=== PATIENT | male | born 1995 | race Caucasian/White ===

== ENCOUNTER 2021-08-27 17:35 | Emergency (ER) | payer MEDICAID, SELFPAY ==
[2021-08-27 17:54] VITALS: BP 137/86; PULSE 89; RESP 16; TEMP 36.9; O2SAT 98; BMI 21.1
--- NOTE | 2021-08-27 18:08 | PC.NURSE ---
REQUESTED ROOM FROM MARLENE RODRÍGUEZ
--- NOTE | 2021-08-27 18:12 | CTR_ITS ---
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 Radiation optimization: All CT scans at this facility use at least one of these dose optimization techniques: automated exposure control; mA and/or kV adjustment per patient size (includes targeted exams where dose is matched to clinical indication); or iterative reconstruction. 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 The brain is otherwise unremarkable. Stable CSF fluid collection in the left frontal region, in the region of the previously resected brain, measuring 2.0 cm in thickness. Cerebral ventricles: Stable ex vacuo dilatation of the left frontal horn. No hydrocephalus. Paranasal sinuses: Visualized sinuses are unremarkable. No fluid levels. Mastoid air cells: Visualized mastoid air cells are well aerated. Bones/joints: Left frontal craniotomy defect with stable metal hardware. Soft tissues: Unremarkable. CT/CT head wo con* [id number] IMPRESSION: 1. No acute intracranial abnormality. 2. 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 3. 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 Radiation Dose CTDIVOL = (mGy): DLP = 897.05 (mGy-cm)
--- NOTE | 2021-08-27 18:12 | CTR_ITS ---
PROCEDURE INFORMATION: Exam: CT Angiography Head With Contrast, Arteriography Exam date and time: 08/27/2021 6:12 PM Age: 26 years old Clinical indication: Visual disturbance; Sudden visual loss; Prior surgery; Surgery type: Astrosarcoma; Additional info: Vision loss in center of his eye in right eye. PT reports complete of vision in left eye over 2 months ago TECHNIQUE: Imaging protocol: Computed tomography angiography of the head with contrast. Exam focused on the arteries. 3D rendering (Not supervised by radiologist): MIP and/or 3D reconstructed images were created by the technologist. Radiation optimization: All CT scans at this facility use at least one of these dose optimization techniques: automated exposure control; mA and/or kV adjustment per patient size (includes targeted exams where dose is matched to clinical indication); or iterative reconstruction. Contrast material: OMNI 300; Contrast volume: 75 ml; Contrast route: INTRAVENOUS (IV); COMPARISON: CT head wo con* [id number] 08/27/2021 6:37 PM RADIATION DOSE METRICS: Total DLP (mGy-cm): 1963.42 FINDINGS: ANTERIOR CIRCULATION: Right internal carotid artery: Unremarkable. Intracranial segment is patent with no significant stenosis. No aneurysm. Right middle cerebral artery: Unremarkable. No occlusion or significant stenosis. No aneurysm. Right anterior cerebral artery: Unremarkable. No occlusion or significant stenosis. No aneurysm. Left internal carotid artery: Unremarkable. Intracranial segment is patent with no significant stenosis. No aneurysm. Left middle cerebral artery: Unremarkable. No occlusion or significant stenosis. No aneurysm. Left anterior cerebral artery: Unremarkable. No occlusion or significant stenosis. No aneurysm. POSTERIOR CIRCULATION: Right vertebral artery: Unremarkable. No occlusion or significant stenosis. No aneurysm. Left vertebral artery: Unremarkable. No occlusion or significant stenosis. No aneurysm. Basilar artery: Unremarkable. No occlusion or significant stenosis. No aneurysm. Right posterior cerebral artery: Unremarkable. No occlusion or significant stenosis. No aneurysm. Left posterior cerebral artery: Unremarkable. No occlusion or significant stenosis. No aneurysm. Brain: Partial resection of the left frontal lobe with encephalomalacia. Cerebral ventricles: Ex vacuo dilatation of the left frontal horn. No hydrocephalus. Bones/joints: Left frontal craniotomy defect. No acute fracture. Soft tissues: Unremarkable. IMPRESSION: No large vessel stenosis or occlusion. PROCEDURE INFORMATION: Exam: CT Angiography Neck With Contrast Exam date and time: 08/27/2021 6:12 PM Age: 26 years old Clinical indication: Visual disturbance; Sudden visual loss; Prior surgery; Surgery type: Astrosarcoma; Additional info: Vision loss in center of his eye in right eye. PT reports complete of vision in left eye over 2 months ago TECHNIQUE: Imaging protocol: Computed tomography angiography of the neck with contrast. 3D rendering (Not supervised by radiologist): MIP and/or 3D reconstructed images were created by the technologist. Radiation optimization: All CT scans at this facility use at least one of these dose optimization techniques: automated exposure control; mA and/or kV adjustment per patient size (includes targeted exams where dose is matched to clinical indication); or iterative reconstruction. Contrast material: OMNI 300; Contrast volume: 75 ml; Contrast route: INTRAVENOUS (IV); COMPARISON: CT head wo con* [id number] 08/27/2021 6:37 PM RADIATION DOSE METRICS: Total DLP (mGy-cm): 1963.42 FINDINGS: Right common carotid artery: No stenosis. No dissection or occlusion. Right internal carotid artery: No stenosis of the extracranial segment. No dissection or occlusion. Right external carotid artery: No occlusion or stenosis of the origin. Left common carotid artery: No stenosis. No dissection or occlusion. Left internal carotid artery: No stenosis of the extracranial segment. No dissection or occlusion. Left external carotid artery: No occlusion or stenosis of the origin. Right vertebral artery: No stenosis. No dissection or occlusion. Left vertebral artery: No stenosis. No dissection or occlusion. Soft tissues: Normal. No significant soft tissue swelling. Bones/joints: No acute fracture. CT/CT angio headneck* [id number] IMPRESSION: No stenosis or occlusion. REFERENCES: NASCET CRITERIA. The degree of internal carotid artery stenosis is based on NASCET criteria. Normal is no stenosis. Mild is less than 50% stenosis. Moderate is 50-69% stenosis. Severe is 70% to 99% stenosis. Total occlusion is no detectable patent lumen. Radiation Dose CTDIVOL = (mGy): DLP = 1963.42~1963.42 (mGy-cm)
--- NOTE | 2021-08-27 18:30 | ECG_ITS ---
[facility] Test Date: 2021-08-27 Pat Name: Cayetano Dill Department: Room: Gender: Male Director Of Social Work: : 1995 Requested By: Isamar Simmons Order Number: [id number] Richar MD: Ana Paula Diaz M.D. Measurements Intervals [place] Rate: 84 P: 65 MT: 156 QRS: 73 QRSD: 86 T: 25 QT: 351 QTc: 415 Interpretive Statements SINUS RHYTHM NONSPECIFIC T-WAVE ABNORMALITY No previous ECG available for comparison Electronically Signed On 08-28-2021 17:58:03 LINE MAINTAINER SECTION by Ana Paula Diaz M.D. [id number]
--- NOTE | 2021-08-27 18:33 | ED_ITS ---
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 He states he woke up this morning with central loss of vision in his right eye states he only has peripheral vision denies headache denies any other symptoms denies any other focal deficits denies any worst improving factors. Associated symptoms: Denies fever(s), headache(s), nausea, neck pain or vomiting Review of Systems Const: Denies: fever(s), chills, body aches or change in appetite Eyes: Reports: blind spots ENMT: Denies: throat pain or dental pain Card: Denies: chest pain Resp: Denies: dyspnea GI: Denies: abdominal pain, nausea, vomiting or diarrhea : Denies: dysuria Musc: Denies: neck pain or back pain Skin/Breast: Denies: rash Neuro: Denies: headache(s) Psych: Denies: depression Meño/Lymph: Denies: easy bruising All/Imm: Denies: urticaria Physical Exam Const: COMMON NORMALS: no acute distress, patient oriented x3 and healthy appearing HENMT: COMMON NORMALS: normocephalic and atraumatic HEAD & SCALP: normocephalic and atraumatic Eye: COMMON NORMALS: Equal, round and reactive pupils present and EOMs intact bilaterally PUPIL: Yes Equal, round and reactive pupils present OTHER: Complete vision loss to the left eye central vision loss to right eye Neck/C-Spine: COMMON NORMALS: full ROM and supple Chest: COMMONS NORMALS: normal inspection of the chest and normal palpation of entire chest wall Resp: COMMON NORMALS: normal respiratory effort, No retractions, No use of accessory muscles and clear to auscultation bilaterally AUSCULTATION: clear to auscultation bilaterally Cardio: COMMON NORMALS: regular rate, regular rhythm and No murmurs present (Cardio) RATE: regular rate RHYTHM: regular rhythm GI: COMMON NORMALS: Normal to inspection, nondistended, normoactive bowel sounds present, Soft to palpation, non-tender and no masses PALPATION: Yes Soft to palpation Extremity: COMMON NORMALS: normal to inspection and full ROM Neuro: COMMON NORMALS: patient oriented x3, moves all extremities and no focal motor deficits Psych: COMMON NORMALS: mental status grossly normal, Normal thought process pr esent and cooperative THOUGHT PROCESS: Normal thought process present Skin: COMMON NORMALS: no rashes or lesions noted and no wounds GENERAL SKIN EXAM: no rashes or lesions noted Course Vital Signs: Vital signs: Vital Signs Temperature 98.5 F 08/27/21 17:54 Pulse Rate 79 08/27/21 19:33 Respiratory Rate 18 08/27/21 18:48 Blood Pressure 157/97 08/27/21 19:33 Pulse Oximetry 99 08/27/21 19:33 MDM - Eye Problem MDM Narrative: Medical decision making narrative: Patient presents here with loss of central vision in his right eye and loss of vision in his left eye 2 months ago. Patient's blood work and CT are all normal. I strongly recommended admission for MRI still I am still concerned of a possible lesion or stroke he states he believes denies issues he does have retinopathy from his diabetes. He refused to stay. Patient understands the risks has decision-making capacity is going to sign out AGAINST MEDICAL ADVICE we will get him set up with Dr. Cooney and he is to follow-up with his neurologist I informed if he changes mind he is return for admission he understands agrees. Lab Data: Labs: Lab Results 08/27/21 08/27/21 08/27/21 18:40 18:40 18:40 WBC 2.7 10^3/uL L 10^ 3/uL (4.0-10.0) RBC 3.31 10^6/uL L 10 ^6/uL (4.1-5.3) Hgb 10.5 g/dL L g/dL (11.7-16.6) Hct 31.1 % L % (42.0-52.0) MCV 94.0 fl fl (80-94) MCH 31.7 pg pg (28.0-34.0) MCHC 33.8 g/dL g/dL (30.0-36.0) RDW 11.9 % L % (12.1-15.1) Plt Count 114 10^3/cmm L 10 ^3/cmm (130-400) MPV 10.0 fL fL (7.4-10.4) Neut % (Auto) 60.3 % % Lymph % (Auto) 27.9 % % [place] % (Auto) 10.2 % % Eos % (Auto) 0.8 % % Baso % (Auto) 0.4 % % Neut # (Auto) 1.60 10^3/uL L 10 ^3/uL (1.8-7.7) Lymph # (Auto) 0.7 10^3/uL L 10^ 3/uL (0.8-4.8) [place] # (Auto) 0.3 10^3/uL 10^3/ uL (0.2-0.9) Eos # (Auto) 0.0 10^3/uL 10^3/ uL (0.0-0.8) Baso # (Auto) 0.0 10^3/uL 10^3/ uL (0.0-0.1) Nucleated RBC % (a uto) 0 % % Nucleated RBCs # 0.0 /100WBC /100W BC PT 12.90 SECONDS SEC ONDS (12.1-14.9) INR 0.94 (0.8-1.2) Sodium 139 mmol/L mmol/L (136-145) Potassium 4.3 mmol/L mmol/L (3.5-5.1) Chloride 102 mmol/L mmol/L (98-107) Carbon Dioxide 29 mmol/L mmol/L (22-29) Anion Gap 12.3 (5-19) BUN 23 mg/dL H mg/dL (6-20) Creatinine 1.8 mg/dL H mg/dL (0.7-1.2) GFR Calculation 45.5 mL/min L mL/ min (90-130) Glucose 187 mg/dL H mg/dL (65-115) Calculated Osmolal ity 297 mOsm/kg H mOs m/kg (285-295) Calcium 8.8 mg/dL mg/dL (8.5-10.5) Total Bilirubin 0.2 mg/dL mg/dL (0.15-1.2) AST 16 U/L U/L (0-40) ALT 13 U/L U/L (0-41) Alkaline Phosphata se 82 IU/L IU/L (40-130) Total Protein 6.5 g/dL L g/dL (6.6-8.7) Albumin 3.9 g/dL g/dL (3.5-5.2) Globulin 2.6 g/dL g/dL (1.3-4.6) Imaging Data^: CT Head: Attestation: I personally reviewed and interpreted this imaging study as follows: Radiologist's impression: [address] 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 Radiation optimization: All CT scans at this facility use at least one of these dose optimization techniques: automated exposure control; mA and/or kV adjustment per patient size (includes targeted exams where dose is matched to clinical indication); or iterative reconstruction. COMPARISON: CT head wo con* [id number] 05/03/2019 5:09 PM RADIATION DOSE METRICS: Total DLP (mGy-cm): 897.05 FINDINGS: Brain: Stable partial resection of the left frontal lobe with encephalomalacia. The brain is otherwise unremarkable. Stable CSF fluid collection in the left frontal region, in the region of the previously resected brain, measuring 2.0 cm in thickness. Cerebral ventricles: Stable ex vacuo dilatation of the left frontal horn. No hydrocephalus. Paranasal sinuses: Visualized sinuses are unremarkable. No fluid levels. Mastoid air cells: Visualized mastoid air cells are well aerated. Bones/joints: Left frontal craniotomy defect with stable metal hardware. Soft tissues: Unremarkable. CT/CT head wo con* [id number] IMPRESSION: 1. No acute intracranial abnormality. 2. 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 3. 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 Radiation Dose CTDIVOL = (mGy): DLP = 897.05 (mGy-cm) Dictated By: James Yepez Signed By: James Yepez Signed Date/Time: 08/27/211914 DD/ [address]: Radiologist's impression: [address] [address] [address] Scan Report Signed Patient: Cayetano Dill Unit #: [id number] : 1995 Age/Sex: 26 / M ADM Date: 08/27/21 Loc: ER Room/Bed: Attending Dr: Ordering Provider/Ordering MD: Isamar Simmons MD Date of Service: 08/27/21 Procedure(s): CT angio headneck* [id number] Accession Number(s): [id number] Report Number: [id number] PROCEDURE INFORMATION: Exam: CT Angiography Head With Contrast, Arteriography Exam date and time: 08/27/2021 6:12 PM Age: 26 years old Clinical indication: Visual disturbance; Sudden visual loss; Prior surgery; Surgery type: Astrosarcoma; Additional info: Vision loss in center of his eye in right eye. PT reports complete of vision in left eye over 2 months ago TECHNIQUE: Imaging protocol: Computed tomography angiography of the head with contrast. Exam focused on the arteries. 3D rendering (Not supervised by radiologist): MIP and/or 3D reconstructed images were created by the technologist. Radiation optimization: All CT scans at this facility use at least one of these dose optimization techniques: automated exposure control; mA and/or kV adjustment per patient size (includes targeted exams where dose is matched to clinical indication); or iterative reconstruction. Contrast material: OMNI 300; Contrast volume: 75 ml; Contrast route: INTRAVENOUS (IV); COMPARISON: CT head wo con* [id number] 08/27/2021 6:37 PM RADIATION DOSE METRICS: Total DLP (mGy-cm): 1963.42 FINDINGS: ANTERIOR CIRCULATION: Right internal carotid artery: Unremarkable. Intracranial segment is patent with no significant stenosis. No aneurysm. Right middle cerebral artery: Unremarkable. No occlusion or significant stenosis. No aneurysm. Right anterior cerebral artery: Unremarkable. No occlusion or significant stenosis. No aneurysm. Left internal carotid artery: Unremarkable. Intracranial segment is patent with no significant stenosis. No aneurysm. Left middle cerebral artery: Unremarkable. No occlusion or significant stenosis. No aneurysm. Left anterior cerebral artery: Unremarkable. No occlusion or significant stenosis. No aneurysm. POSTERIOR CIRCULATION: Right vertebral artery: Unremarkable. No occlusion or significant stenosis. No aneurysm. Left vertebral artery: Unremarkable. No occlusion or significant stenosis. No aneurysm. Basilar artery: Unremarkable. No occlusion or significant stenosis. No aneurysm. Right posterior cerebral artery: Unremarkable. No occlusion or significant stenosis. No aneurysm. Left posterior cerebral artery: Unremarkable. No occlusion or significant stenosis. No aneurysm. Brain: Partial resection of the left frontal lobe with encephalomalacia. Cerebral ventricles: Ex vacuo dilatation of the left frontal horn. No hydrocephalus. Bones/joints: Left frontal craniotomy defect. No acute fracture. Soft tissues: Unremarkable. IMPRESSION: No large vessel stenosis or occlusion. PROCEDURE INFORMATION: Exam: CT Angiography Neck With Contrast Exam date and time: 08/27/2021 6:12 PM Age: 26 years old Clinical indication: Visual disturbance; Sudden visual loss; Prior surgery; Surgery type: Astrosarcoma; Additional info: Vision loss in center of his eye in right eye. PT reports complete of vision in left eye over 2 months ago TECHNIQUE: Imaging protocol: Computed tomography angiography of the neck with contrast. 3D rendering (Not supervised by radiologist): MIP and/or 3D reconstructed images were created by the technologist. Radiation optimization: All CT scans at this facility use at least one of these dose optimization techniques: automated exposure control; mA and/or kV adjustment per patient size (includes targeted exams where dose is matched to clinical indication); or iterative reconstruction. Contrast material: OMNI 300; Contrast volume: 75 ml; Contrast route: INTRAVENOUS (IV); COMPARISON: CT head wo con* [id number] 08/27/2021 6:37 PM RADIATION DOSE METRICS: Total DLP (mGy-cm): 1963.42 FINDINGS: Right common carotid artery: No stenosis. No dissection or occlusion. Right internal carotid artery: No stenosis of the extracranial segment. No dissection or occlusion. Right external carotid artery: No occlusion or stenosis of the origin. Left common carotid artery: No stenosis. No dissection or occlusion. Left internal carotid artery: No stenosis of the extracranial segment. No dissection or occlusion. Left external carotid artery: No occlusion or stenosis of the origin. Right vertebral artery: No stenosis. No dissection or occlusion. Left vertebral artery: No stenosis. No dissection or occlusion. Soft tissues: Normal. No significant soft tissue swelling. Bones/joints: No acute fracture. CT/CT angio headneck* [id number] IMPRESSION: No stenosis or occlusion. REFERENCES: NASCET CRITERIA. The degree of internal carotid artery stenosis is based on NASCET criteria. Normal is no stenosis. Mild is less than 50% stenosis. Moderate is 50-69% stenosis. Severe is 70% to 99% stenosis. Total occlusion is no detectable patent lumen. Radiation Dose CTDIVOL = (mGy): DLP = 1963.42 1963.42 (mGy-cm) Dictated By: James Yepez Signed By: James Yepez Signed Date/Time: 08/27/211930 DD/ 11 EKG Data^: EKG 1: Attestation: I personally reviewed and interpreted this EKG as follows: EKG interpretation date: 08/27/21 EKG interpretation time: 19:01 Interpretation: nsr hr [address] or t wave abnormalities qrs 86 qtc 391 Discharge Plan Discharge Patient Disposition: Left Against Medical Advice Clinical Impression: Loss of vision Condition: Stable Discharge Orders: Discharge ED (Routine); Ordered 08/27/21 Ordered By: Isamar Simmons Referrals: Peña Cooney MD [Physician] - 1-3 days Discharge Diet: Advance as tolerated Discharge Activity: Resume usual activity Patient Instructions: Vision Problems Coding Level of Care Code ED Driller And Broacher for Chg Fwd Exam Comprehensive
[2021-08-27] MEDS: iohexol 350 mg/mL 100 mL Btl IV (18:43)
[2021-08-27 18:48] VITALS: BP 167/101; PULSE 88; RESP 18; O2SAT 99
[2021-08-27 18:57] LABS: Basophils % 0.4 %; Eosinophils % 0.8 %; Hematocrit 31.1 % (42.0-52.0); Hemoglobin 10.5 g/dL (11.7-16.6); Lymphocytes # 0.7 10^3/uL (0.8-4.8); Lymphocytes % 27.9 %; Mean Corpuscular HGB Conc 33.8 g/dL (30.0-36.0); Mean Corpuscular Hemoglobin 31.7 pg (28.0-34.0); Monocytes # 0.3 10^3/uL (0.2-0.9); Monocytes % 10.2 %; Neutrophils % 60.3 %; Nucleated Red Blood Cells % 0 %; Platelet Count 114 10^3/cmm (130-400); Red Blood Count 3.31 10^6/uL (4.1-5.3); Red Cell Distribution Width 11.9 % (12.1-15.1); White Blood Count 2.7 10^3/uL (4.0-10.0)
[2021-08-27 19:10] LABS: INR 0.94 (0.8-1.2)
[2021-08-27 19:13] LABS: Alanine Aminotransferase 13 U/L (0-41); Albumin Level 3.9 g/dL (3.5-5.2); Alkaline Phosphatase 82 IU/L (40-130); Anion Gap 12.3 (5-19); Aspartate Amino Transferase 16 U/L (0-40); Blood Urea Nitrogen 23 mg/dL (6-20); Calcium 8.8 mg/dL (8.5-10.5); Carbon Dioxide 29 mmol/L (22-29); Chloride 102 mmol/L (98-107); Globulin 2.6 g/dL (1.3-4.6); Glomerular Filtration Rate 45.5 mL/min (90-130); Glucose 187 mg/dL (65-115); Osmolality Calculated 297 mOsm/kg (285-295); Potassium 4.3 mmol/L (3.5-5.1); Sodium 139 mmol/L (136-145); Total Bilirubin 0.2 mg/dL (0.15-1.2); Total Protein 6.5 g/dL (6.6-8.7)
[2021-08-27 19:33] VITALS: BP 157/97; PULSE 79; O2SAT 99
[2021-08-27] MEDS: sodium chloride 0.9% 1,000 ML 999 ML IV (19:40)
[2021-08-27 19:55] VITALS: BP 134/81; RESP 18; O2SAT 99
--- NOTE | 2021-08-29 05:53 | DCPLANNER ---
Addendum entered by Kaylah Brooks 09/14/21 07:41: Patient was seen on 08.31.21 Original Note: certified orthotist practice manager had message to schedule a follow up appointment for patient with Dr. Cooney, for vision loss. certified orthotist practice manager faxed patients information to the office of Dr. Cooney, who will call patient with appointment information.
== END 2021-08-27 19:58 | disposition left against medical advice (07) ==
PROVIDERS: Emergency Provider Emergency Medicine
DX: H54.3 Unqualified visual loss, both eyes (principal); E10.9 Type 1 diabetes mellitus without complications; Z53.29 Procedure and treatment not carried out because of patient's decision for other reasons
CPT/HCPCS: 70450; 70496; 70498; 80053; 85025; 85610; 93005; 96360; 99284; J7030; Q9967

== ENCOUNTER → 2022-02-26 07:53 | Outpatient (BNVA) | payer MEDICAID, SELFPAY | PROVIDERS: PCP Family Medicine; Visit Provider Internal Medicine | DX: E10.319 Type 1 diabetes mellitus with unspecified diabetic retinopathy without macular edema (principal); E10.42 Type 1 diabetes mellitus with diabetic polyneuropathy; E78.2 Mixed hyperlipidemia; H35.00 Unspecified background retinopathy; Z79.4 Long term (current) use of insulin | CPT/HCPCS: 99204 ==

== ENCOUNTER → 2022-05-14 12:30 | Outpatient (BNVA) | payer MEDICAID, SELFPAY | PROVIDERS: PCP Family Medicine; Visit Provider Internal Medicine | DX: E10.319 Type 1 diabetes mellitus with unspecified diabetic retinopathy without macular edema (principal); H54.3 Unqualified visual loss, both eyes; Z85.841 Personal history of malignant neoplasm of brain; Z79.4 Long term (current) use of insulin; E78.2 Mixed hyperlipidemia; G62.9 Polyneuropathy, unspecified | CPT/HCPCS: 99214 ==

== ENCOUNTER → 2022-05-21 10:36 | Outpatient (BNVA) | payer MEDICAID, SELFPAY | PROVIDERS: PCP Family Medicine; Visit Provider Family Medicine | DX: N18.32 Chronic kidney disease, stage 3b (principal) | CPT/HCPCS: 80069; 82043; 85025 ==

== ENCOUNTER 2022-05-22 18:27 | Emergency (ER) | payer MEDICAID, SELFPAY ==
[2022-05-22 18:45] VITALS: BP 138/89; PULSE 111; RESP 20; TEMP 36.2; O2SAT 100
[2022-05-22 19:34] LABS: Basophils % 0.4 %; Eosinophils % 0.4 %; Hematocrit 33.3 % (42.0-52.0); Hemoglobin 11.1 g/dL (11.7-16.6); Lymphocytes # 0.9 10^3/uL (0.8-4.8); Lymphocytes % 9.1 %; Mean Corpuscular HGB Conc 33.3 g/dL (30.0-36.0); Mean Corpuscular Hemoglobin 29.9 pg (28.0-34.0); Mean Corpuscular Volume 89.8 fl (80-94); Monocytes # 0.6 10^3/uL (0.2-0.9); Monocytes % 5.3 %; Neutrophils # 8.76 10^3/uL (1.8-7.7); Neutrophils % 84.6 %; Nucleated Red Blood Cells % 0 %; Platelet Count 219 10^3/cmm (130-400); Red Blood Count 3.71 10^6/uL (4.1-5.3); Red Cell Distribution Width 12.4 % (12.1-15.1); White Blood Count 10.4 10^3/uL (4.0-10.0)
[2022-05-22] MEDS: sodium chloride 0.9% 1,000 ML 999 ML IV (19:37)
[2022-05-22] MEDS: ondansetron 2 mg/ML SDV 2 mL 8 MG IVP (19:37)
[2022-05-22 19:39] LABS: Glucose Point of Care 247 mg/dL (70-110)
--- NOTE | 2022-05-22 19:43 | W.ED.GENADLT ---
HPI - General Adult General: Chief complaint: General Medical Stated complaint: High Sugar, N/V Time Seen by Provider: 05/22/22 18:49 History of Present Illness: 26-year-old male presenting today with high blood glucose. Patient notes that he is a type I diabetic with an insulin pump. However insulin has been as high as 500 today. No changes to medications. Was feeling normally before this happened. Is tried multiple boluses of insulin without improvement. Patient thinks his insulin is working fine. He notes nausea vomiting, diffuse abdominal pain with this. The symptoms did not begin until after elevation in glucose. Review of Systems General: Reports: 10 or more systems reviewed and unremarkable except in HPI and below PFSH ED PFSH: Medical History Diabetes type 1, uncontrolled Hernia Seizures Surgical History H/O brain surgery H/O eye surgery Family History Father No problems noted. Mother COPD (chronic obstructive pulmonary disease) Social History Smoking and tobacco status: never smoked Second hand smoke exposure: No Smoking risk assessment/counseling performed?: Yes Alcohol intake: never Desire information about alcohol rehabilitation?: No Counseling given: No Desire information about substance/drug rehabilitation?: No Counseling given: No Adopted: No Caregiver/support person: No Lives independently: Yes Household members: significant other and other Housing: Manufactured/Mobile home Marital status: Single Number of children: 0 Highest education level completed: GED or Equivalent service: No Current occupational status: disabled History of recent travel: No Physical Exam Const: COMMON NORMALS: no acute distress, patient oriented x3 and alert GENERAL APPEARANCE: cooperative ORIENTATION/CONSCIOUSNESS: Yes awake, Yes oriented to person, Yes oriented to place and Yes oriented to time HENMT: COMMON NORMALS: normocephalic, atraumatic, external ears normal, Normal external nose present and moist oral mucous membranes HEAD & SCALP: normal to inspection, normocephalic and atraumatic NOSE: Normal external nose present GENERAL EAR: hearing grossly impaired EXTERNAL EAR: Yes external ears normal Eye: COMMON NORMALS: Equal, round and reactive pupils present, EOMs intact bilaterally, conjunctivae normal and no scleral icterus GENERAL EYE: appearance normal, both eyes and all related structures EYELID: eyelids normal CONJUNCTIVA: Yes conjunctivae normal SCLERA: sclerae normal PUPIL: Yes Equal, round and reactive pupils present Neck/C-Spine: COMMON NORMALS: full ROM, supple and no JVD GENERAL: Yes normal visual inspection Lymph: LYMPHATIC: no lymphadenopathy noted and no lymphedema noted Chest: COMMONS NORMALS: normal inspection of the chest Resp: COMMON NORMALS: normal respiratory effort, No retractions and No use of accessory muscles Cardio: COMMON NORMALS: no JVD, regular rate and regular rhythm RATE: regular rate RHYTHM: regular rhythm GI: COMMON NORMALS: Normal to inspection, nondistended, normoactive bowel sounds present : COMMON NORMALS: Yes no CVA tenderness BLADDER/KIDNEY EXAM: Yes no CVA tenderness Back/Pelvis: COMMON NORMALS: no CVA tenderness and thoracic and lumbar spine normal to inspection Extremity: COMMON NORMALS: normal to inspection, full ROM and capillary refill normal GENERAL: Yes normal exam except as noted Neuro: COMMON NORMALS: patient oriented x3, CN's II-XII intact bilaterally, moves all extremities, no focal motor deficits, no sensory deficits noted and gait normal SENSORIUM/ORIENTATION: Yes alert, Yes oriented to person, Yes oriented to place and Yes oriented to time Psych: COMMON NORMALS: mental status grossly normal, Normal thought process present, cooperative and normal affect THOUGHT PROCESS: Normal thought process present Skin: COMMON NORMALS: no rashes or lesions noted and no wounds GENERAL SKIN EXAM: no rashes or lesions noted Course Vital Signs: Vital signs: Vital Signs Temperature 97.1 F L 05/22/22 18:45 Pulse Rate 79 05/22/22 19:51 Respiratory Rate 16 05/22/22 19:51 Blood Pressure 139/90 05/22/22 19:51 Pulse Oximetry 100 05/22/22 19:51 Oxygen Delivery Me thod 05/22/22 19:51 [facility] - General Adult Medical Decision Making Patient is a 26-year-old male presenting today with elevated glucose and type 1 diabetes. Patient does note significant heat exhaustion today. ABG within normal limits. No evidence of ketones. Glucose continues to downtrend down. Patient was given a bolus of normal saline. Medicine for nausea. Vast improvement overall symptoms. Will discharge to home with strict return precautions. Patient agreement with plan. Lab Data : 05/22/22 19:22 05/22/22 19: Laboratory Results WBC 10.4 10^3/uL (4.0-10.0) H 05/22/22 19: RBC 3.71 10^6/uL (4.1-5.3) L 05/22/22 19:22 Hgb 11.1 g/dL (11.7-16.6) L 05/22/22 19: Hct 33.3 % (42.0-52.0) L 05/22/22 19: MCV 89.8 fl (80-94) 05/22/22 19: MCH 29.9 pg (28.0-34.0) 05/22/22 19: MCHC 33.3 g/dL (30.0-36.0) 05/22/22 19: RDW 12.4 % (12.1-15.1) 05/22/22 19: Plt Count 219 10^3/cmm (130-400) 05/22/22 19: MPV 10.0 fL (7.4-10.4) 05/22/22 19: Neut % (Auto) 84.6 % 05/22/22 19: Lymph % (Auto) 9.1 % 05/22/22 19: Overton % (Auto) 5.3 % 05/22/22 19: Eos % (Auto) 0.4 % 05/22/22 19: Baso % (Auto) 0.4 % 05/22/22 19: Neut # (Auto) 8.76 10^3/uL (1.8-7.7) H 05/22/22 19: Lymph # (Auto) 0.9 10^3/uL (0.8-4.8) 05/22/22 19: Overton # (Auto) 0.6 10^3/uL (0.2-0.9) 05/22/22 19: Eos # (Auto) 0.0 10^3/uL (0.0-0.8) 05/22/22 19:22 Baso # (Auto) 0.0 10^3/uL (0.0-0.1) 05/22/22 19:22 Nucleated RBC % (auto) 0 % 05/22/22 19:22 Nucleated RBCs # 0.0 /100WBC 05/22/22 19:22 Specimen Type Arterial 05/22/22 17:32 Sample Site Radial, right 05/22/22 17:32 ABG pH 7.41 (7.35-7.45) 05/22/22 17:32 ABG pCO2 40.8 mmHg (35-45) 05/22/22 17:32 ABG pO2 81.7 mmHg (80.0-100.0) 05/22/22 17:32 ABG HCO3 25.6 mmol/L (22-26) 05/22/22 17:32 ABG Base Excess 0.8 mmol/L (-2.0-2.0) 05/22/22 17:32 John Test Pos 05/22/22 17:32 Hematocrit 34.3 % (42-52) L 05/22/22 17:32 O2 Delivery Device Room air 05/22/22 17:32 FiO2 21.0 % 05/22/22 17:32 Boiler Tenders Supervisor ID Monro 05/22/22 17:32 Sodium 138 mmol/L (136-145) 05/22/22 19:22 Potassium 4.6 mmol/L (3.5-5.1) 05/22/22 19:22 Chloride 101 mmol/L (98-107) 05/22/22 19:22 Carbon Dioxide 26 mmol/L (22-29) 05/22/22 19:22 Anion Gap 15.6 (5-19) 05/22/22 19:22 BUN 24 mg/dL (6-20) H 05/22/22 19:22 Creatinine 1.8 mg/dL (0.7-1.2) H 05/22/22 19:22 GFR Calculation 45.5 mL/min (90-130) L 05/22/22 19:22 Glucose 264 mg/dL (65-115) H 05/22/22 19:22 POC Glucose 247 mg/dL (70-110) H 05/22/22 19:34 Calculated Osmolality 299 mOsm/kg (285-295) H 05/22/22 19:22 Calcium 9.6 mg/dL (8.5-10.5) 05/22/22 19:22 Magnesium 2.0 mg/dL (1.7-2.3) 05/22/22 19:22 Total Bilirubin 0.4 mg/dL (0.15-1.2) 05/22/22 19:22 AST 20 U/L (0-40) 05/22/22 19:22 ALT 9 U/L (0-41) 05/22/22 19:22 Alkaline Phosphatase 96 U/L (40-130) 05/22/22 19:22 Total Protein 6.8 g/dL (6.6-8.7) 05/22/22 19:22 Albumin 4.4 g/dL (3.5-5.2) 05/22/22 19:22 Globulin 2.4 g/dL (1.3-4.6) 05/22/22 19:22 Serum Ketones Negative (Negative) 05/22/22 19:22 Discharge Plan Discharge Patient Disposition: Home Clinical Impression: Acute hyperglycemia, Heat exhaustion Condition: Stable Prescriptions: No Action oxcarbazepine 600 mg tablet 600 mg PO BID Lantus Solostar U-100 Insulin 100 unit/mL (3 mL) insulin pen 14 unit SUBCUT QAM Rx Instructions: 13-14 units at night insulin aspart U-100 [Novolog U-100 Insulin aspart] 100 unit/mL solution 30 unit SUBCUT DAILY 90 Days Qty: 40 3RF (DME) Dexcom G6 Computer Technology Teacher Misc See Rx Instructions .Route Qty: 1 0RF Rx Instructions: Check BS 4-6 times a day. (DME) Dexcom G6 Sensor Device See Rx Instructions .Route Qty: 3 3RF Rx Instructions: Change every 10 days. (DME) Dexcom G6 Transmitter Device See Rx Instructions .Route Qty: 1 3RF Rx Instructions: Change every 90 days. insulin aspart U-100 [Novolog Flexpen U-100 Insulin] 100 unit/mL (3 mL) insulin pen See Rx Instructions SUBCUT TID Qty: 15 3RF Rx Instructions: Uses for SS SUBCUT three times daily; Max dose 80 units. Discharge Orders: Discharge ED (Routine); Ordered 05/22/22 Ordered By: Wesley Bowden Referrals: Andrzej Todd DO [Primary Care Provider] - Patient Instructions: Hyperglycemia Coding Level of Care Code ED Licensed Appraiser for Chg Fwd Exam Comprehensive
[2022-05-22 19:44] LABS: ABG PCO2 40.8 mmHg (35-45); ABG PH Result 7.41 (7.35-7.45); Arterial Blood Gas Hematocrit 34.3 % (42-52); Base Excess ABG 0.8 mmol/L (-2.0-2.0); Blood Gas Allen Test Pos; Blood Gas Sample Type Arterial; HCO3 ABG 25.6 mmol/L (22-26); PO2 ABG 81.7 mmHg (80.0-100.0)
[2022-05-22 19:45] LABS: Blood Gas Operator Identificat MONRO; Blood Gas Sample Site Radial, right; Oxygen Device ROOM AIR
[2022-05-22 19:45] LABS: Ketone (Acetest) Serum Negative (Negative)
[2022-05-22 19:51] VITALS: BP 139/90; PULSE 79; RESP 16; O2SAT 100
[2022-05-22 19:53] LABS: Alanine Aminotransferase 9 U/L (0-41); Albumin Level 4.4 g/dL (3.5-5.2); Alkaline Phosphatase 96 U/L (40-130); Anion Gap 15.6 (5-19); Aspartate Amino Transferase 20 U/L (0-40); Blood Urea Nitrogen 24 mg/dL (6-20); Calcium 9.6 mg/dL (8.5-10.5); Carbon Dioxide 26 mmol/L (22-29); Chloride 101 mmol/L (98-107); Globulin 2.4 g/dL (1.3-4.6); Glomerular Filtration Rate 45.5 mL/min (90-130); Glucose 264 mg/dL (65-115); Osmolality Calculated 299 mOsm/kg (285-295); Potassium 4.6 mmol/L (3.5-5.1); Sodium 138 mmol/L (136-145); Total Bilirubin 0.4 mg/dL (0.15-1.2); Total Protein 6.8 g/dL (6.6-8.7)
== END 2022-05-22 20:45 | disposition home or self-care (01) ==
PROVIDERS: Emergency Medicine; Emergency Provider Emergency Medicine; PCP Family Medicine
DX: E10.65 Type 1 diabetes mellitus with hyperglycemia (principal); T67.5XXA Heat exhaustion, unspecified, initial encounter; X30.XXXA Exposure to excessive natural heat, initial encounter; Z96.41 Presence of insulin pump (external) (internal)
CPT/HCPCS: 36416; 36600; 80053; 82009; 82803; 82962; 83735; 85025; 96361; 96374; 99284; J2405; J7030

== ENCOUNTER 2022-07-19 06:06 | Outpatient (CLI) | payer MEDICAID, SELFPAY ==
--- NOTE | 2022-07-19 | US_ITS ---
WS: [id number] TESTICULAR ULTRASOUND HISTORY: Epididymal cyst COMPARISON: 06/22/2019 TECHNIQUE: Real-time and color Doppler imaging or utilized to perform a testicular ultrasound. Right testicle: 4.7 cm x 3.1 cm x 2.4 cm. Normal size and echogenicity. No mass or torsion. Normal color Doppler is present throughout. Systolic and diastolic velocities are both present. No significant hydrocele. Right epididymis: Normal epididymis with no increased vascularity. Left testicle: 4.5 cm x 2.9 cm x 2.4 cm. Normal size and echogenicity. No mass or torsion. Normal color Doppler is present throughout. Systolic and diastolic velocities are both present. Small LEFT hydrocele. Small LEFT varicocele. Left epididymis: Normal size LEFT epididymal head. Along the body of the epididymis is a small cyst w ith septation measuring 8 x 7 x 6 mm. This was previously described. US/US scrotum [id number] IMPRESSION: 1. Small stable complex cyst LEFT epididymis. 2. Small LEFT hydrocele. 3. No testicular mass or torsion.
== END 2022-07-19 06:07 | disposition home or self-care (01) ==
LOC: RAD 06:06
PROVIDERS: PCP Family Medicine; Visit Provider Urology
DX: N50.3 Cyst of epididymis (principal); N43.3 Hydrocele, unspecified
CPT/HCPCS: 76870

== ENCOUNTER → 2022-07-24 12:04 | Outpatient (BNVA) | payer MEDICAID, SELFPAY | PROVIDERS: PCP Family Medicine; Visit Provider Family Medicine | DX: N18.32 Chronic kidney disease, stage 3b (principal); D63.1 Anemia in chronic kidney disease; I10 Essential (primary) hypertension; E78.2 Mixed hyperlipidemia | CPT/HCPCS: 80061; 80069; 85025 ==

== ENCOUNTER 2022-07-25 10:51 | Emergency (ER) | payer MEDICAID, SELFPAY ==
[2022-07-25 11:00] VITALS: BP 110/72; PULSE 75; RESP 15; TEMP 36.8; O2SAT 97; BMI 20.3
[2022-07-25 11:06] VITALS: BP 116/77; PULSE 76; RESP 16; O2SAT 99
--- NOTE | 2022-07-25 11:11 | W.ED.GENADLT ---
HPI - General Adult General: Chief complaint: General Medical Stated complaint: Abnormal labs Time Seen by Provider: 07/25/22 11:11 History of Present Illness: Mr. Dill is a 27-year-old male with significant past medical history of type 1 diabetes, hypertension, hyperlipidemia, history of brain cancer post completed surgery with chemotherapy and radiation resulting in stage III CKD presenting to the emergency department due to abnormal lab. He reports that he had not seen his transfer pumper in a few months and then saw them and had labs drawn. Potassium was noted to be 5.9 and he was referred to the emergency department. He reports normal urine output and p.o. intake. He does endorse generalized body aches worse in the right upper extremity. Intensity symptoms is moderate. Course has worsened. Denies history of dialysis. No other specific changes in health, exacerbating, or alleviating factors identified. Onset (ago): day(s) Severity: moderate Quality: aching Associated symptoms: Reports no associated symptoms Review of Systems General: Reports: 10 or more systems reviewed and unremarkable except in HPI and below PFSH ED PFSH: Medical History Diabetes type 1, uncontrolled Hernia Seizures Surgical History H/O brain surgery H/O eye surgery Family History Father No problems noted. Mother COPD (chronic obstructive pulmonary disease) Social History Smoking and tobacco status: never smoked Second hand smoke exposure: No Smoking risk assessment/counseling performed?: Yes Alcohol intake: never Desire information about alcohol rehabilitation?: No Counseling given: No Desire information about substance/drug rehabilitation?: No Counseling given: No Adopted: No Caregiver/support person: No Lives independently: Yes Household members: significant other and other Housing: Manufactured/Mobile home Marital status: Single Number of children: 0 Highest education level completed: GED or Equivalent service: No Current occupational status: disabled History of recent travel: No Physical Exam Const: COMMON NORMALS: alert GENERAL APPEARANCE: cooperative and well developed HENMT: COMMON NORMALS: normocephalic and atraumatic HEAD & SCALP: normocephalic and atraumatic Eye: COMMON NORMALS: conjunctivae normal CONJUNCTIVA: Yes conjunctivae normal SCLERA: sclerae normal Neck/C-Spine: COMMON NORMALS: supple GENERAL: Yes trachea midline Resp: COMMON NORMALS: clear to auscultation bilaterally EFFORT & INSPECTION: Yes able to speak in complete sentences AUSCULTATION: clear to auscultation bilaterally Cardio: COMMON NORMALS: regular rate and regular rhythm RATE: regular rate RHYTHM: regular rhythm GI: COMMON NORMALS: Soft to palpation PALPATION: Yes Soft to palpation and No Tenderness to palpation present (GI) Extremity: GENERAL: Yes normal exam except as noted and No edema Neuro: COMMON NORMALS: moves all extremities SENSORIUM/ORIENTATION: Yes alert and No Orientation impaired Psych: COMMON NORMALS: mental status grossly normal and Normal thought process present THOUGHT PROCESS: Normal thought process present Course Vital Signs: Vital signs: Vital Signs Temperature 98.3 F 07/25/22 11:00 Pulse Rate 73 07/25/22 14:19 Respiratory Rate 16 07/25/22 14:19 Blood Pressure 146/71 07/25/22 14:19 Pulse Oximetry 98 07/25/22 14:19 Oxygen Delivery Me thod 07/25/22 14:19 [facility] - General Adult Medical Decision Making 27-year-old gentleman presenting with concern over abnormal labs. Patient is nontoxic on exam. EKG notable for repeat T waves. Laboratory studies with no leukocytosis, hemoglobin similar to baseline. Metabolic panel with significant hyperkalemia and baseline creatinine. IV fluids, calcium, dextrose with insulin, and Lasix ordered for hyperkalemia. Repeat metabolic panel improved. Renal ultrasound with very mild swelling and dilation of renal pelvis without evidence of obstruction. This may be secondary to IV fluid resuscitation versus other cause in clinical context. Patient did have recurrent hypoglycemia requiring dextrose boluses and I subsequently ordered a dextrose containing fluid drip. I discussed with the patient that given this somewhat unexplained hypoglycemia, as patient was able to eat and turned off his insulin pump, I recommended inpatient management for further observation and repeat laboratory studies as well as continued fluid hydration patient was agreeable with plan. I was notified by nursing staff that the patient ambulated from the emergency department without further discussion or remaining in the emergency department for further care and disposition. Medical Records I reviewed the patient's medical records. Lab Data I reviewed the patient's lab results. : 07/25/22 11:28 07/25/22 13:54 Radiology Impressions Renal Ultrasound 07/25/22 12:22 IMPRESSION: 1. Very mild splitting and dilatation of a renal pelvis. No high-grade obstruction. 2. Increased vascularity LEFT kidney. Evaluate for possible glomerulonephritis. Laboratory Results WBC 6.7 10^3/uL (4.0-10.0) 07/25/22 11:28 RBC 3.73 10^6/uL (4.1-5.3) L 07/25/22 11:28 Hgb 11.5 g/dL (11.7-16.6) L 07/25/22 11: Hct 34.4 % (42.0-52.0) L 07/25/22 11: MCV 92.2 fl (80-94) 07/25/22 11:28 MCH 30.8 pg (28.0-34.0) 07/25/22 11: MCHC 33.4 g/dL (30.0-36.0) 07/25/22 11: RDW 12.1 % (12.1-15.1) 07/25/22 11: Plt Count 226 10^3/cmm (130-400) 07/25/22 11: MPV 9.9 fL (7.4-10.4) 07/25/22 11: Neut % (Auto) 70.4 % 07/25/22 11:28 Lymph % (Auto) 21.0 % 07/25/22 11:28 Barry % (Auto) 6.6 % 07/25/22 11: Eos % (Auto) 1.0 % 07/25/22 11: Baso % (Auto) 0.7 % 07/25/22 11: Neut # (Auto) 4.71 10^3/uL (1.8-7.7) 07/25/22 11: Lymph # (Auto) 1.4 10^3/uL (0.8-4.8) 07/25/22 11:28 Barry # (Auto) 0.4 10^3/uL (0.2-0.9) 07/25/22 11:28 Eos # (Auto) 0.1 10^3/uL (0.0-0.8) 07/25/22 11:28 Baso # (Auto) 0.1 10^3/uL (0.0-0.1) 07/25/22 11:28 Nucleated RBC % (auto) 0 % 07/25/22 11:28 Nucleated RBCs # 0.0 /100WBC 07/25/22 11:28 Sodium 141 mmol/L (136-145) 07/25/22 13:54 Potassium 4.8 mmol/L (3.5-5.1) 07/25/22 13:54 Chloride 106 mmol/L (98-107) 07/25/22 13:54 Carbon Dioxide 24 mmol/L (22-29) 07/25/22 13:54 Anion Gap 15.8 (5-19) 07/25/22 13:54 BUN 18 mg/dL (6-20) 07/25/22 13:54 Creatinine 1.5 mg/dL (0.7-1.2) H 07/25/22 13:54 GFR Calculation 55.7 mL/min (90-130) L 07/25/22 13:54 Glucose 47 mg/dL (65-115) L 07/25/22 13:54 POC Glucose 185 mg/dL (70-110) H 07/25/22 14:27 Calculated Osmolality 291 mOsm/kg (285-295) 07/25/22 13:54 Calcium 9.4 mg/dL (8.5-10.5) 07/25/22 13:54 Critical Care Time Critical Care Time: Critical Care Time: Yes Total Critical Care Time: 35 Attestation: Due to a high probability of clinically significant, possibly life threatening deterioration, the patient required my highest level of attention and preparedness to intervene emergently and I personally spent this critical care time directly and personally managing the patient. This critical care time included obtaining a history; examining the patient; pulse oximetry; ordering and review of laboratory and imaging studies; arranging urgent treatment with development of a management plan; evaluation of patient's response to treatment; frequent reassessment; and, discussions with other providers as applicable. It was exclusive of separately billable procedures. Primary system involved is renal/endocrine Discharge Plan Discharge Patient Disposition: Left Against Medical Advice Clinical Impression: Hyperkalemia, CKD (chronic kidney disease), Hypoglycemia associated with diabetes, Abnormal ECG Condition: Stable Prescriptions: No Action oxcarbazepine 600 mg tablet 600 mg PO BID insulin aspart U-100 [Novolog U-100 Insulin aspart] 100 unit/mL solution 30 unit SUBCUT DAILY 90 Days Qty: 40 3RF (DME) Dexcom G6 Air Dispatcher Misc See Rx Instructions .Route Qty: 1 0RF Rx Instructions: Check BS 4-6 times a day. (DME) Dexcom G6 Transmitter Device See Rx Instructions .Route Qty: 1 3RF Rx Instructions: Change every 90 days. insulin aspart U-100 [Novolog Flexpen U-100 Insulin] 100 unit/mL (3 mL) insulin pen See Rx Instructions SUBCUT TID Qty: 15 3RF Rx Instructions: Uses for SS SUBCUT three times daily; Max dose 80 units. (DME) Omnipod 5 G6 Intro Kit (Gen 5) Cartridge See Rx Instructions .ROUTE .COMPLEX Qty: 1 0RF Dose Instruction: USE DIRECTED Rx Instructions: USE DIRECTED (DME) Dexcom G6 Sensor Device See Rx Instructions .Route Qty: 3 3RF Rx Instructions: Change every 10 days. lisinopril 2.5 mg tablet 2.5 mg PO DAILY (DME) Dexcom G6 Sensor Device MISCELLANEOUS (DME) Omnipod 5 G6 Pods (Gen 5) Cartridge SUBCUT Referrals: Andrzej Todd, [Primary Care Provider] - Coding Level of Care Code ED Machine Group Leader for Chg Fwd Exam Comprehensive
--- NOTE | 2022-07-25 11:25 | ECG_ITS ---
[facility] Test Date: 2022-07-25 Pat Name: Cayetano Dill Department: Room: Gender: Male Pelts Skinner: : 1995 Requested By: Conrad Dalal Order Number: [id number] Richar MD: Ana Paula Diaz M.D. Measurements Intervals [place] Rate: 68 P: 71 ID: [id number] QRS: 89 QRSD: 99 T: 66 QT: 358 QTc: 383 Interpretive Statements SINUS RHYTHM POSSIBLE LEFT ATRIAL ENLARGEMENT [-0.1mV P-WAVE IN V1/V2] WARNING: DATA QUALITY MAY AFFECT INTERPRETATION Compared to ECG 08/27/2021 19:01:25 T-wave abnormality no longer present Electronically Signed On 07-25-2022 18:04:22 CDT by Ana Paula Diaz M.D. [id number]
[2022-07-25 11:33] LABS: Basophils # 0.1 10^3/uL (0.0-0.1); Basophils % 0.7 %; Eosinophils # 0.1 10^3/uL (0.0-0.8); Hematocrit 34.4 % (42.0-52.0); Hemoglobin 11.5 g/dL (11.7-16.6); Lymphocytes # 1.4 10^3/uL (0.8-4.8); Mean Corpuscular HGB Conc 33.4 g/dL (30.0-36.0); Mean Corpuscular Hemoglobin 30.8 pg (28.0-34.0); Mean Corpuscular Volume 92.2 fl (80-94); Mean Platelet Volume 9.9 fL (7.4-10.4); Monocytes # 0.4 10^3/uL (0.2-0.9); Monocytes % 6.6 %; Neutrophils # 4.71 10^3/uL (1.8-7.7); Neutrophils % 70.4 %; Nucleated Red Blood Cells % 0 %; Platelet Count 226 10^3/cmm (130-400); Red Blood Count 3.73 10^6/uL (4.1-5.3); Red Cell Distribution Width 12.1 % (12.1-15.1); White Blood Count 6.7 10^3/uL (4.0-10.0)
[2022-07-25] MEDS: sodium chloride 0.9% 1,000 ML 999 ML IV ×2 (11:33→12:37)
[2022-07-25 11:44] LABS: Anion Gap 13.4 (5-19); Blood Urea Nitrogen 19 mg/dL (6-20); Calcium 9.6 mg/dL (8.5-10.5); Carbon Dioxide 26 mmol/L (22-29); Chloride 98 mmol/L (98-107); Glomerular Filtration Rate 51.7 mL/min (90-130); Glucose 119 mg/dL (65-115); Osmolality Calculated 275 mOsm/kg (285-295); Potassium 6.4 mmol/L (3.5-5.1); Sodium 131 mmol/L (136-145)
--- NOTE | 2022-07-25 12:22 | US_ITS ---
WS: [id number] RENAL ULTRASOUND HISTORY: worsening renal function, hyperkalemia COMPARISON: None available. TECHNIQUE: 2-D and color Doppler imaging of the kidney submitted. Right kidney: 10.8 cm x 5.4 cm x 4.4 cm. Normal size kidney. Mild splitting of the renal pelvis. No adjacent fluid. Left kidney: 11.3 cm x 5.7 cm x 4.6 cm. Enlarged mildly echogenic kidney. There is increased vascularity and very minimal splitting of the re nal pelvis. Small amount of fluid adjacent to the kidney. Aorta: Normal. Urinary Bladder: Normally distended. No free fluid or adjacent to the bladder. US/US renal BI* [id number] IMPRESSION: 1. Very mild splitting and dilatation of a renal pelvis. No high-grade obstruc tion. 2. Increased vascularity LEFT kidney. Evaluate for possible glomerulonephritis .
[2022-07-25] MEDS: dextrose 50% syringe 50 mL IVP ×2 (12:34→14:20)
[2022-07-25] MEDS: calcium gluconate 0.9% NaCL 1 GM/50 ML PREMIX IV (12:37)
[2022-07-25] MEDS: FUROsemide 10 mg/mL SDV 4mL 40 MG IVP (12:38)
[2022-07-25] MEDS: insulin regular-human 100 units/1 mL 10 UNIT IVP (12:39)
[2022-07-25 12:44] LABS: Glucose Point of Care 83 mg/dL (70-110)
[2022-07-25 13:00] VITALS: PULSE 91; O2SAT 95
[2022-07-25 13:30] LABS: Glucose Point of Care 34 mg/dL (70-110)
[2022-07-25] MEDS: dextrose 50% syringe 50 mL (13:32)
[2022-07-25 13:43] LABS: Glucose Point of Care 128 mg/dL (70-110)
[2022-07-25 14:19] VITALS: BP 146/71; PULSE 73; RESP 16; O2SAT 98
[2022-07-25] MEDS: dextrose 10% 1,000 ML 100 ML IV (14:20)
[2022-07-25 14:21] LABS: Anion Gap 15.8 (5-19); Blood Urea Nitrogen 18 mg/dL (6-20); Calcium 9.4 mg/dL (8.5-10.5); Carbon Dioxide 24 mmol/L (22-29); Chloride 106 mmol/L (98-107); Glomerular Filtration Rate 55.7 mL/min (90-130); Glucose 47 mg/dL (65-115); Osmolality Calculated 291 mOsm/kg (285-295); Potassium 4.8 mmol/L (3.5-5.1); Sodium 141 mmol/L (136-145)
[2022-07-25 14:31] LABS: Glucose Point of Care 185 mg/dL (70-110)
--- NOTE | 2022-07-25 15:03 | PC.NURSE ---
this RN entered pt room found IV lying on ground and pt not present. Lab personal notified this nurse that pt told them he was DC and they let him exit ED pt no seen in WR or PArking lot. pt ama without tell staff or signing papers.
== END 2022-07-25 15:15 | disposition left against medical advice (07) ==
PROVIDERS: Emergency Provider Emergency Medicine; PCP Family Medicine
DX: E87.5 Hyperkalemia (principal); E10.649 Type 1 diabetes mellitus with hypoglycemia without coma; R94.31 Abnormal electrocardiogram [ECG] [EKG]; Z79.4 Long term (current) use of insulin; E10.22 Type 1 diabetes mellitus with diabetic chronic kidney disease; N18.30 Chronic kidney disease, stage 3 unspecified
CPT/HCPCS: 36415; 36416; 76770; 80048; 82043; 82962; 85025; 93005; 96365; 96375; 99285; J0610; J1815; J1940; J7030

== ENCOUNTER → 2022-08-01 09:04 | Outpatient (BNVA) | payer MEDICAID, SELFPAY | PROVIDERS: PCP Family Medicine; Visit Provider Family Medicine | DX: E87.5 Hyperkalemia (principal); N18.32 Chronic kidney disease, stage 3b | CPT/HCPCS: 80048 ==

== ENCOUNTER → 2022-08-28 09:45 | Outpatient (BNVA) | payer MEDICAID, SELFPAY | PROVIDERS: PCP Family Medicine; Visit Provider Family Medicine | DX: N18.32 Chronic kidney disease, stage 3b (principal); D63.1 Anemia in chronic kidney disease | CPT/HCPCS: 80048 ==

== ENCOUNTER → 2023-02-05 10:35 | Outpatient (BNVA) | payer MEDICAID, SELFPAY | PROVIDERS: PCP Family Medicine; Visit Provider Family Medicine | DX: I10 Essential (primary) hypertension (principal); E78.2 Mixed hyperlipidemia | CPT/HCPCS: 80069; 82043; 82310; 83970; 85025 ==

== ENCOUNTER → 2023-02-27 13:37 | Outpatient (BNVA) | payer MEDICAID, SELFPAY | PROVIDERS: PCP Family Medicine; Visit Provider Family Medicine | DX: N18.32 Chronic kidney disease, stage 3b (principal); D63.1 Anemia in chronic kidney disease | CPT/HCPCS: 80069 ==

== ENCOUNTER → 2023-08-25 15:58 | Outpatient (BNVA) | payer MEDICAID, SELFPAY | PROVIDERS: PCP Family Medicine; Visit Provider Family Medicine | DX: E78.2 Mixed hyperlipidemia (principal); G62.9 Polyneuropathy, unspecified; H35.00 Unspecified background retinopathy; Z79.899 Other long term (current) drug therapy | CPT/HCPCS: 80069; 82306; 82310; 82340; 83970; 85025 ==

== ENCOUNTER → 2023-09-17 08:45 | Outpatient (BNVA) | payer MEDICAID, SELFPAY | PROVIDERS: PCP Family Medicine; Visit Provider Internal Medicine | DX: E10.9 Type 1 diabetes mellitus without complications (principal); E78.2 Mixed hyperlipidemia; G62.9 Polyneuropathy, unspecified; H35.00 Unspecified background retinopathy; I10 Essential (primary) hypertension | CPT/HCPCS: 36415; 80053; 80061; 82044; 83036 ==

== ENCOUNTER → 2023-09-25 15:16 | Outpatient (BNVA) | payer MEDICAID, SELFPAY | PROVIDERS: PCP Family Medicine; Visit Provider Family Medicine | DX: E10.39 Type 1 diabetes mellitus with other diabetic ophthalmic complication (principal); H54.7 Unspecified visual loss | CPT/HCPCS: 80048 ==

== ENCOUNTER 2023-10-29 08:00 | Outpatient (CLI) | payer MEDICAID, SELFPAY ==
[2023-10-29 08:25] LABS: Viscosity Semen Normal; Volume Semen 0.5 mL (2-5)
[2023-10-29 08:30] LABS: PH Semen 7.5 (7.0-8.0)
[2023-10-29 08:43] LABS: Pathology Referral Yes; Red Blood Count Semen 0-4 /hpf
== END 2023-10-29 08:01 | disposition home or self-care (01) ==
PROVIDERS: PCP Family Medicine; Visit Provider Urology
DX: N50.82 Scrotal pain (principal)
CPT/HCPCS: 80503; 89320

== ENCOUNTER 2025-08-05 12:20 | Inpatient (IN) | payer SELFPAY ==
--- OUTSIDE RECORDS SUMMARY | 2024-08-09 11:00 | XMS_ITS ---
Author Organization [facility] Address [address] [place] [address] Care Team Providers Care Financial Controller Name Role Phone Andrzej Todd Primary Care Provider CHARLOTTE Fernandez [phone] REASON FOR VISIT 6 mo f/u - infertility/ed Encounters Encounter Location Date Provider Diagnosis [facility] [address] [place] [address] 08/09/2024 CHARLOTTE TERRY Plan Of Treatment No Information Progress Notes * NAYELAMCayetano RICHARDSON DDOB:[birth year] (30 yo M)Acc No.[id number]:08/09/2024 Progress Notes Patient: Cayetano ODONNELL Provider: Doc TERRY MD :1995 A ge:29 Y S ex:Male Date:08/09/2024 Address:[address] [place], [place] [id number] Pcp:Andrzej Todd Subjective: * Chief Complaints: * 1 . 6 mo f/u - infertility/ed. * Medical History: Objective: * Vitals: Assessment: Plan: * Treatment: * Billing Information: * Visit Code: * Procedure Codes: * Electronic signature of AUST IN MD HARRISON on 08/05/2025 at 12:25 PM CARPENTER ASSISTANT INSTALLER Sign off status: Pending * Provider: Doc TERRY MD Date: 10/09/2023 Generated for Arlyni malgorzata/Jenna/eTransmitting on: 10/05/2024 12:25 PM CARPENTER ASSISTANT INSTALLER
[2025-08-05] VITALS (32 sets, daily range): BP systolic 88–144; BP diastolic 35–82; PULSE 66–106; RESP 16–28; TEMP 36.6–36.9; O2SAT 96–100; BMI 20.9; BMI 21.1
--- OUTSIDE RECORDS SUMMARY | 2025-08-05 12:25 | XMS_ITS | Clinical Summary ---
Author Organization [facility] Address [address] [place] [address] Care Team Providers Care Wheel Cutter Name Role Phone Perez, Andrzej Moreno DO Primary Care Provider [phone] Allergies Active Allergy Reactions Criticality Noted Date Comments Amoxicillin Diarrhea Low 03/29/2014 Medications ibuprofen (MOTRIN) 400 mg Oral tablet Take 2 Tabs by mouth every 8 hours as needed for Pain. 30 Tab None 1 Active insulin NPH-Regular human rec (NOVOLIN 70/30) 100 unit/mL Suspension Inject by subcutaneous injection 2 times daily before meals. 40 units in the am and 20 units in pm Active traMADol (ULTRAM) 50 mg tablet Take 2 Tablet (100 mg) by mouth every 6 hours as needed for Pain. 20 Tablet 6 Active Active Problems Problem Noted Date Diagnosed Date Chewing tobacco dependence 08/17/2016 CAP (community acquired pneumonia) 08/17/2016 Hyperglycemia 08/17/2016 DKA (diabetic ketoacidoses) 06/02/2011 Unilateral inguinal hernia 02/07/2010 Type 1 diabetes mellitus with complication 12/05 Resolved Problems Problem Noted Date Diagnosed Date Resolved Date AUGUSTA (acute kidney injury) 08/17/2016 Dehydration 08/17/2016 08/20/2016 Volume depletion 08/17/2016 08/20/2016 Nausea and vomiting 08/17/2016 08/20/20 16 Immunizations Immunization Administration Dates Next Due (M-M-R II/PRIORIX)(12 MO UP) MEASLES, MUMPS AND RUBELLA VIRUS VACCINE, 0.5 ML IM/SUBCUT 12/12/1998,11/26/1995 Dt Dtp Dtap Vaccine 12/12/1998,199 6,1994,1994,1994 HIB, Unspecified Formulation 11/26/1995, 1994,1994,1993 Hepatitis A Vaccine 12/12/1998,07/21/1998,1997 Hepatitis B Vaccine 11/23/1997,03/31/1997,1993 IPV/OPV 12/12/1998, 6,1994,1993 Influenza Seasonal Unspecifi ed Formulation IM 06/27/2005,07/10/2004,09/05/2003 Family History Medical History Relation Name Comments Healthy Father Heart Disease Maternal Grandfather Hypertension Maternal Grandmother Healthy Mother Healthy Paternal Grandfather Healthy Paternal Grandmother Relation Name Status Comments Father Alive Maternal Grandfather Maternal Grandmother Alive Mother Alive Paternal Grandfather Alive Paternal Grandmother Alive Social History Tobacco Use Types Packs/Day Years Used Date Smoking Tobacco: Never Smokeless Tobacco: Current Chew Alcohol Use Standard Drinks/Week Comments No 0 (1 standard drink = 0.6 oz pur e alcohol) Sex and Gender Information Value Date Recorded Sex Assigned at Not on file Legal Sex Male 3:21 AM 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 DESIGN MANAGER Gender Identity Not on file Sexual Orientation Not on file Occupation Industry Job Start Date Job End Date Not on file Not on file Not on file Not on file Last Filed Vital Signs Vital Sign Reading Time Taken Comments Blood Pressure 109/64 08/20/2016 3:15 AM 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 DESIGN MANAGER Pulse 109 08/20/2016 7:55 AM 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 DESIGN MANAGER Temperature 37.3 C (99.2 F) 08/20/2016 3:15 AM 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 DESIGN MANAGER Respiratory Rate 18 08/20/2016 7:55 AM 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 DESIGN MANAGER Oxygen Saturation 93% 08/20/2016 7:50 AM 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 DESIGN MANAGER Inhaled Oxygen Concentration - - Weight 71.2 kg (157 lb) 08/19/2016 5:11 AM 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 DESIGN MANAGER Height 177.8 cm (5' 10 ) 08/17/2016 5:00 PM 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 DESIGN MANAGER Body Mass Index 22.53 08/17/2016 5:00 PM 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 DESIGN MANAGER Plan of Treatment Health Maintenance Due Date Last Done Comments DTAP/TDAP/TD VACCINES (6 - Tdap) 2005 12/12/1998, 11/26/1995, 1994, Additional history exists DIABETES ANNUAL FOOT EXAM 2012 DIABETES ANNUAL RETINAL EXAM 2012 DIABETES MICROALBUMIN ANNUAL SCREEN 2012 12/26/2008, 07/13/2007, 03/18/2006, Additional history exists LDL CHOLESTEROL ANNUAL 2012 07/13/2007 DIABETES HBA1C Q 6 MONTHS 09/01/20192018, 08/20/2016, 11/19/2005 HPV VACCINES (1 - 3-dose SCD M series) 2021 INFLUENZA VACCINE (#1) 2025 5, 07/10/2004, 09/05/2003 HEPATITIS B VACCINES Completed 11/23/1997, 03/31/1997, 1994 Procedures Procedure Name Priority Date/Time Associated Diagnosis Comments HEMOGLOBIN A1C Add on 08/20/2016 9:42 AM 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 DESIGN MANAGER MICROALBUMIN/CREATIN INE RATIO, RANDOM UR Routine 12/26/2008 8:25 AM CDT LIPID PANEL Routine 07/13/2007 1:44 PM CDT from Last 3 Months or Most Recently Relevant to Health Maintenance Results * (ABNORMAL) HEMOGLOBIN A1C (08/20/2016 9:42 AM 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 DESIGN MANAGER) HEMOGLOBIN A1C 11.4(H) 4.8 - 5.9 % 08/20/2016 10:03 AM 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 DESIGN MANAGER [facility] EST. AVG GLUCOSE, A1C 280 mg/dL 08/20/2016 10:03 AM 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 DESIGN MANAGER [facility] Blood Venipuncture / Unknown 08/20/2016 9:42 AM 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 DESIGN MANAGER 08/20/2016 9:42 AM 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 DESIGN MANAGER us Joleen Fermin MD CHEMISTRY ORDERABLES F inal Result [facility] CLIA # [id number] [address] [place] [address] * MICROALBUMIN/CREATININE RATIO, RANDOM UR (12/26/2008 8:25 AM CDT) MICROALBUMIN URINE See Sep Report [facility] Urine specimen (specimen) 12/26/2008 8:25 AM CDT 12/27/2008 7:49 AM CDT Narrative Transcriptions Sgf Scanning, Him - 12/29/2008 8:41 AM CDT us [facility] URINE ORDERABLES Edited Performing Organization Address City/[facility] Co de Phone Number INTERFACE SYSTEM Refer to clinic/hospital department [facility] CLIA# [id number] [address] [place] [address] * (ABNORMAL) LIPID PANEL (07/13/2007 1:44 PM CDT) CHOLESTEROL 219(H) 75 - 200 mg/dL INTERFACE SYSTEM HDL 46 40 - 60 mg/dL INTERFACE SYSTEM CALCULATED LDL CHOLESTEROL 66 0 - 130 mg/dL INTERFACE SYSTEM TRIGLYCERIDE 534(H) 0 - 158 mg/dL INTERFACE SYSTEM CALCULATED TOTAL CHOLESTEROL TO HDL RATIO 4.76 3.43 - 4.97 INTERFACE SYSTEM 07/13/2007 1:44 PM CDT us Nabeel Morse MD CHEMISTRY ORDERABLES Edited Performing Organization Address City/[facility] Co de Phone Number INTERFACE SYSTEM Refer to clinic/hospital department from Last 3 Months or Most Recently Relevant to Health Maintenance [place] [address] [place] [address] SYSTEM INSURANCE MEDICAID [place] Advance Directives For more information, please contact: [phone] * Full Code (Latest Code Status on File) Date Activated Date Inactivated Comments 08/17/2016 5:21 PM 08/20/2016 8:03 PM * Full Code Date Activated Date Inactivated Comments 06/02/2011 12:10 AM 06/02/2011 3:46 PM Care Teams Wheel Cutter Relationship Specialty Start Date End Date Andrzej Todd DO [address] [place] [phone] PCP - General Family Practice 08/20/16
--- OUTSIDE RECORDS SUMMARY | 2025-08-05 12:25 | XMS_ITS | Encounter Summary ---
Author Organization [facility] Address [address] [place] [address] Care Team Providers Care Alumni Relations Officer Name Role Phone Andrzej Todd DO Primary Care Provider [phone] Encounter Details Date Type Department Care Team (Latest Contact Info) Description 11/30/2001 Outpatient Historical 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
--- OUTSIDE RECORDS SUMMARY | 2025-08-05 12:25 | XMS_ITS | Encounter Summary ---
Author Organization [facility] Address [address] [place] [address] Care Team Providers Care Varnishing Unit Operator Name Role Phone Andrzej Todd DO Primary Care Provider Encounter Details Date Type Department Care Team (Latest Contact Info) Description 02/27/2001 Outpatient Historical [facility] Family Medicine- [place] [address] [place] [address] Albert Joseph MD [address] [facility] [address] [place] [phone] Dermatitis due to plant (Primary Dx); Impetigo Social History Tobacco Use Types Packs/Day Years Used Date Smoking Tobacco: Never Assessed Sex and Gender Information Value Date Recorded Sex Assigned at Not on file Legal Sex Male 3:21 AM ROPEWALK ROPE MAKER Gender Identity Not on file Sexual Orientation Not on file documented as of this encounter Plan of Treatment Not on file documented as of this encounter Visit Diagnoses Diagnosis Dermatitis due to plant- Primary Contact dermatitis and other eczema due to plants (except food) Impetigo documented in this encounter Care Teams Varnishing Unit Operator Relationship Specialty [place] [address] [place] [phone] PCP - General Family Practice 08/20/16 documented as of this encounter
--- OUTSIDE RECORDS SUMMARY | 2025-08-05 12:25 | XMS_ITS | Encounter Summary ---
Author Organization [facility] Address [address] [place] [address] Care Team Providers Care Ultimate Hoops Scoreboard Operator Name Role Phone Andrzej Todd DO Primary Care Provider [phone] Encounter Details Date Type Department Care Team (Latest Contact Info) Description 10/29/2000 Outpatient Historical [facility] Medicine [place] [address] [facility] [address] [place] [phone] Kosta Baer DO NO ADDRESS ON FILE Streptococcal sore throat (Primary Dx) Social History Tobacco Use Types Packs/Day Years Used Date Smoking Tobacco: Never Assessed Sex and Gender Information Value Date Recorded Sex Assigned at Not on file Legal Sex Male 3:21 AM SUPPLIER RELATIONSHIP DIRECTOR Gender Identity Not on file Sexual Orientation Not on file documented as of this encounter Plan of Treatment Not on file documented as of this encounter Visit Diagnoses Diagnosis Streptococcal sore throat- Primary documented in this encounter Care Teams Ultimate Hoops Scoreboard Operator Relationship Specialty Start Date End Date Andrzej Todd DO [address] [place] [phone] PCP - General Family Practice 08/20/16 documented as of this encounter
--- OUTSIDE RECORDS SUMMARY | 2025-08-05 12:25 | XMS_ITS | Encounter Summary ---
Author Organization [facility] Address [address] [place] [address] Care Team Providers Care Infantry Assaultman Name Role Phone Andrzej Todd DO Primary Care Provider [phone] Encounter Details Date Type Department Care Team (Latest Contact Info) Description 10/14/2000 Outpatient Historical [facility] Family Medicine- [place] [address] [place] [address] Albert Joseph MD [address] [facility] [address] [place] [phone] Undiagnosed cardiac murmurs (Primary Dx); Streptococcal sore throat Social History Tobacco Use Types Packs/Day Years Used Date Smoking Tobacco: Never Assessed Sex and Gender Information Value Date Recorded Sex Assigned at Not on file Legal Sex Male 3:21 AM DIRECTOR 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 MATERIAL Gender Identity Not on file Sexual Orientation Not on file documented as of this encounter Plan of Treatment Not on file documented as of this encounter Visit Diagnoses Diagnosis Undiagnosed cardiac murmurs- Primary Streptococcal sore throat documented in this encounter Care Teams Infantry Assaultman Relationship Specialty Start Date End Date Andrzej Todd DO [address] [place] [phone] PCP - General Family Practice 08/20/16 documented as of this encounter
--- OUTSIDE RECORDS SUMMARY | 2025-08-05 12:26 | XMS_ITS | Encounter Summary ---
Author Organization [facility] Address [address] [place] [address] Care Team Providers Care Payroll Processor Name Role Phone Andrzej Todd DO Primary Care Provider [phone] Encounter Details Date Type Department Care Team (Latest Contact Info) Description 10/02/2004 Outpatient Historical [facility] Medicine [place] [address] [facility] [address] [place] [phone] Beatriz Haq, MEDICAL ASST [address] [place] [address] ACUTE PHARYNGITIS (Primary Dx); HYPOGLYCEMIA NOS; GLYCOSURIA Social History Tobacco Use Types Packs/Day Years Used Date Smoking Tobacco: Never Assessed Sex and Gender Information Value Date Recorded Sex Assigned at Not on file Legal Sex Male 3:21 AM SOCIAL SCIENCE PROFESSOR Gender Identity Not on file Sexual Orientation Not on file documented as of this encounter Plan of Treatment Not on file documented as of this encounter Visit Diagnoses Diagnosis Acute pharyngitis- Primary Hypoglycemia, unspecified Glycosuria documented in this encounter Care Teams Payroll Processor Relationship Specialty Start Date End Date Andrzej Todd DO [address] [place] [phone] PCP - General Family Practice 08/20/16 documented as of this encounter
--- OUTSIDE RECORDS SUMMARY | 2025-08-05 12:26 | XMS_ITS | Encounter Summary ---
Author Organization [facility] Address [address] [place] [address] Care Team Providers Care Dry Kiln Burner Name Role Phone Andrzej Todd DO Primary Care Provider [phone] Encounter Details Date Type Department Care Team (Latest Contact Info) Description 04/29/2006 Outpatient Historical [facility] Diabetic Program Kaiden Rios Julianna [address] [place] [address] Nabeel Morse MD [address] [place], [place] [phone] DM w/o Complication Type I, Uncontrolled (Primary Dx) Social History Tobacco Use Types Packs/Day Years Used Date Smoking Tobacco: Never Assessed Sex and Gender Information Value Date Recorded Sex Assigned at Not on file Legal Sex Male 3:21 AM FITNESS AND WELLNESS INSTRUCTOR Gender Identity Not on file Sexual Orientation Not on file documented as of this encounter Plan of Treatment Not on file documented as of this encounter Visit Diagnoses Diagnosis Type I (juvenile type) diabetes mellitus without mention of complication, uncontrolled- Primary documented in this encounter Care Teams Dry Kiln Burner Relationship Specialty Start Date End Date Andrzej Todd DO [address] [place] [phone] PCP - General Family Practice 08/20/16 documented as of this encounter
--- OUTSIDE RECORDS SUMMARY | 2025-08-05 12:26 | XMS_ITS | Encounter Summary ---
Author Organization [facility] Address [address] [facility] Attn: [place] [address] Care Team Providers Care Bottom Turner Name Role Phone Perez Andrzej Moreno DO Primary Care Provider [phone] Encounter Details Date Type Department Care Team (Late st Contact Info) Description 07/13/2007 Outpatient Historical Nabeel Morse MD [address] [place] [address] Social History Tobacco Use Types Packs/Day Years Used Date Smoking Tobacco: Never Assessed Sex and Gender Information Value Date Recorded Sex Assigned at Not on file Legal Sex Male 3:21 AM SKI INSTRUCTOR Gender Identity Not on file Sexual Orientation Not on file documented as of this encounter Plan of Treatment Not on file documented as of this encounter Procedures Procedure Name Priority Date/Time Associated Diagnosis Comments MISCELLANEOUS LAB TEST Routine 7 1:44 PM CDT THYROID PEROXIDASE ANTIBODY Routine 07/13/2007 1:44 PM CDT THYROGLOBULIN ANTIBODY Routine 7 1:44 PM CDT T4 TOTAL Routine 07/13/2007 1:44 PM CDT MICROALBUMIN, RANDOM URINE Routine 07/13/2007 1:44 PM CDT TSH Routine 07/13/2007 1:44 PM CDT T4 FREE Routine 07/13/2007 1:44 PM CDT LIPID PANEL Routine 07/13/2007 1:44 PM CDT COMPREHENSIVE METABOLIC PANEL Routine 07/13/2007 1:44 PM CDT documented in this encounter Results * MISCELLANEOUS LAB TEST (07/13/2007 1:44 PM CDT) MISCELLANEOUS LAB TEST INTERFACE SYSTEM Comment: celiac panel sent to [employer] see sep report 07/13/2007 1:44 PM CDT us Nabeel Morse MD CHEMISTRY ORDERABLES Edited Performing Organization Address [facility] de Phone Number INTERFACE SYSTEM Refer to clinic/hospital department * THYROID PEROXIDASE ANTIBODY (07/13/2007 1:44 PM CDT) THYROID PEROXIDASE AB See Sep Report INTERFACE SYSTEM 07/13/2007 1:44 PM CDT us Nabeel Morse MD CHEMISTRY ORDERABLES Edited Performing Organization Address [facility] Phone Number INTERFACE SYSTEM Refer to clinic/hospital department * THYROGLOBULIN ANTIBODY (07/13/2007 1:44 PM CDT) THYROGLOBULIN AB See Sep Report INTERFACE SYSTEM 07/13/2007 1:44 PM CDT us Nabeel Morse MD CHEMISTRY ORDERABLES Edited Performing Organization Address City/[facility] Co de Phone Number INTERFACE SYSTEM Refer to clinic/hospital department * MICROALBUMIN, RANDOM URINE (07/13/2007 1:44 PM CDT) MICROALBUMIN URINE See Sep Report INTERFACE SYSTEM 07/13/2007 1:44 PM CDT us Nabeel Morse MD URINE ORDERABLES Edited Performing Organization Address City/[facility] de Phone Number INTERFACE SYSTEM Refer to clinic/hospital department * TSH (07/13/2007 1:44 PM CDT) TSH 0.500 0.350 - 5.500 uIU/ml INTERFACE SYSTEM Comment: As of 05 at 3:00 p.m. [facility] has changed the methodology for TSH, and with this change the reference range has changed from 0.49-4.67 to 0.35-5.5 uIU/ml. 07/13/2007 1:44 PM CDT us Nabeel Morse MD CHEMISTRY ORDERABLES Edited Performing Organization Address [facility] de Phone Number INTERFACE SYSTEM Refer to clinic/hospital department * T4 FREE (07/13/2007 1:44 PM CDT) Pathologist [facility] T4 FREE 1.00 0.89 - 1.76 ng/dL INTERFACE SYSTEM 07/13/2007 1:44 PM CDT us Nabeel Morse MD CHEMISTRY ORDERABLES Edited Performing Organization Address [facility] Co de Phone Number INTERFACE SYSTEM Refer to clinic/hospital department * T4 TOTAL (07/13/2007 1:44 PM CDT) Pathologist [facility] T4 TOTAL 5.6 4.5 - 10.9 mcg/dl INTERFACE SYSTEM 07/13/2007 1:44 PM CDT us Nabeel Morse MD CHEMISTRY ORDERABLES Edited Performing Organization Address [facility] de Phone Number INTERFACE SYSTEM Refer to clinic/hospital department * (ABNORMAL) LIPID PANEL (07/13/2007 1:44 PM [...] MD CHEMISTRY ORDERABLES Edited Performing Organization Address City/[facility] Co de Phone Number INTERFACE SYSTEM Refer to clinic/hospital department * (ABNORMAL) COMPREHENSIVE METABOLIC PANEL (07/13/2007 1:44 PM CDT) GLUCOSE 498(H) 70 - 110 mg/dL INTERFACE SYSTEM BUN 16 9 - 20 mg/dL INTERFACE SYSTEM CREATININE 1.0 0.7 - 1.5 mg/dL INTERFACE SYSTEM SODIUM 137 136 - 145 mEq/L INTERFACE SYSTEM POTASSIUM 4.5 3.5 - 5.0 mEq/L INTERFACE SYSTEM CHLORIDE 96 95 - 110 mEq/L INTERFACE SYSTEM CO2 25 22 - 32 mmol/l INTERFACE SYSTEM CALCIUM 10.4 8.4 - 10.5 mg/dL INTERFACE SYSTEM TOTAL PROTEIN 7.7 6.3 - 8.2 g/dL INTERFACE SYSTEM ALBUMIN 4.3 3.5 - 5.0 g/dL INTERFACE SYSTEM ALKALINE PHOSPHATASE 413(H) 71 - 344 U/L INTERFACE SYSTEM AST 23 8 - 33 U/L INTERFACE SYSTEM ALT 28 4 - 36 IU/L INTERFACE SYSTEM BILIRUBIN TOTAL 1.6(H) 0.3 - 1.2 mg/dL INTERFACE SYSTEM GLOBULIN (CALC) 3.4 2.4 - 3.9 g/dL INTERFACE SYSTEM ALBUMIN/GLOBULIN RATIO 1.3 1.0 - 2.3 INTERFACE SYSTEM ANION GAP 21(H) 9 - 20 mEq/L INTERFACE SYSTEM OSMOLALITY, CALCULATED 307(H) 275 - 295 mOsm/Kg INTERFACE SYSTEM 07/13/2007 1:44 PM CDT us Nabeel Morse MD CHEMISTRY ORDERABLES Edited INTERFACE SYSTEM Refer to clinic/hospital department documented in this encounter Visit Diagnoses Not on filedocumented in this encounter Care Teams Bottom Turner Relationship Specialty Start Date End Date Andrzej Todd DO [address] [place] [phone] PCP - General Family Practice 08/20/16 documented as of this encounter
--- OUTSIDE RECORDS SUMMARY | 2025-08-05 12:26 | XMS_ITS | Encounter Summary ---
Author Organization [facility] Address [address] [place] [address] Care Team Providers Care High School Math Teacher Name Role Phone Andrzej Todd DO Primary Care Provider [phone] Encounter Details Date Type Department Care Team (Late st Contact Info) Description 10/22/2005 Outpatient Historical [facility] Diabetic Program Kaiden Rios Julianna 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
--- OUTSIDE RECORDS SUMMARY | 2025-08-05 12:26 | XMS_ITS | Encounter Summary ---
Author Organization [facility] Address [address] [place] [address] Care Team Providers Care Swimming Pool Installer And Servicer Name Role Phone Andrzej Todd DO Primary Care Provider [phone] Encounter Details Date Type Department Care Team (Latest Contact Info) Description 12/30/2003 Outpatient Historical [facility] Diabetic Program Kaiden Rios Julianna 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
--- OUTSIDE RECORDS SUMMARY | 2025-08-05 12:26 | XMS_ITS | Encounter Summary ---
Author Organization [facility] Address [address] [place] [address] Care Team Providers Care Muck Miner Blasting Name Role Phone Andrzej Todd DO Primary Care Provider [phone] Encounter Details Date Type Department Care Team (Latest Contact Info) Description 01/10/2005 Outpatient Historical [facility] Medicine [place] [address] [facility] [address] [place] [phone] Samanta Vivar NP NO ADDRESS ON FILE ACUTE PHARYNGITIS (Primary Dx); IMPACTED CERUMEN; DIABETES MELLITUS TYPE I-UNCOMPL ([facility]) Social History Tobacco Use Types Packs/Day Years Used Date Smoking Tobacco: Never Assessed Sex and Gender Information Value Date Recorded Sex Assigned at Not on file Legal Sex Male 3:21 AM 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
--- OUTSIDE RECORDS SUMMARY | 2025-08-05 12:26 | XMS_ITS | Encounter Summary ---
Author Organization [facility] Address [address] [place] [address] Care Team Providers Care Installation Service Representative Name Role Phone Andrzej Todd DO Primary Care Provider [phone] Encounter Details Date Type Department Care Team (Latest Contact Info) Description 06/04/2001 Outpatient Historical [facility] Medicine [place] [address] [facility] [address] [place] [phone] Kosta Baer DO NO ADDRESS ON FILE Undiagnosed cardiac murmurs (Primary Dx) Social History Tobacco Use Types Packs/Day Years Used Date Smoking Tobacco: Never Assessed Sex and Gender Information Value Date Recorded Sex Assigned at Not on file 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
--- OUTSIDE RECORDS SUMMARY | 2025-08-05 12:26 | XMS_ITS | Encounter Summary ---
Author Organization [facility] Address [address] [place] [address] Care Team Providers Care Pensions Retirement Plan Specialist Name Role Phone Andrzej Todd Primary Care Provider [phone] Encounter Details Date Type Department Care Team (Latest Contact Info) Description 03/18/2006 Outpatient [facility] [address] [place] [address] Nabeel Morse MD [address] [place] [address] DM w/o Complication Type I (CMS/HCC) (Primary Dx) Social History Tobacco Use Types Packs/Day Years Used Date Smoking Tobacco: Never Assessed Sex and Gender Information Value Date Recorded Sex Assigned at Not on file 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 Gender Identity Not on file Sexual Orientation Not on file documented as of this encounter Plan of Treatment Not on file documented as of this encounter Procedures Procedure Name Priority Date/Time Associated Diagnosis Comments MICROALBUMIN, RANDOM URINE Routine 03/18/2006 3:00 PM CDT TSH Routine 03/18/2006 3:00 PM CDT T4 FREE Routine 03/18/2006 3:00 PM CDT documented in this encounter Results * MICROALBUMIN, RANDOM URINE (03/18/2006 3:00 PM CDT) MICROALBUMIN URINE See Sep Report INTERFACE SYSTEM 03/18/2006 3:00 PM CDT us Nabeel Morse MD URINE ORDERABLES Final Result Performing Organization Address [facility] de Phone Number INTERFACE SYSTEM Refer to clinic/hospital department * T4 FREE (03/18/2006 3:00 PM CDT) T4 FREE 1.22 0.89 - 1.76 ng/dL INTERFACE SYSTEM 03/18/2006 3:00 PM CDT us Nabeel Morse MD CHEMISTRY ORDERABLES Final Re sult Performing Organization Address [facility] Phone Number INTERFACE SYSTEM Refer to clinic/hospital department * TSH (03/18/2006 3:00 PM CDT) TSH 0.648 0.350 - 5.500 uIU/ml INTERFACE SYSTEM Comment: As of 05 at 3:00 p.m. [facility] has changed the methodology for TSH, and with this change the reference range has changed from 0.49-4.67 to 0.35-5.5 uIU/ml. 03/18/2006 3:00 PM CDT us Nabeel Morse MD CHEMISTRY ORDERABLES Final Re sult Performing Organization Address [facility] Phone Number INTERFACE SYSTEM Refer to clinic/hospital department documented in this encounter Visit Diagnoses Diagnosis Type I (juvenile type) diabetes mellitus without mention of complication, not stated as uncontrolled- Primary documented in this encounter Care Teams Pensions Retirement Plan Specialist Relationship Specialty Start Date End Date Andrzej Todd DO [address] [place] [phone] PCP - General Family Practice 08/20/16 documented as of this encounter
--- OUTSIDE RECORDS SUMMARY | 2025-08-05 12:26 | XMS_ITS | Encounter Summary ---
Author Organization [facility] Address [address] [place] [address] Care Team Providers Care Autographer Name Role Phone Andrzej Todd DO Primary Care Provider [phone] Encounter Details Date Type Department Care Team (Latest Contact Info) Description 08/17/2003 Outpatient Historical [facility] Medicine- [place] [address] [place] [phone] Jessica Alonso MD NO ADDRESS ON FILE DIABETES UNCOMPL GENEVIEVE-TYPE I (CMS/HCC) (Primary Dx); CELLULITIS OF LEG Social History Tobacco Use Types Packs/Day Years Used Date Smoking Tobacco: Never Assessed Sex and Gender Information Value Date Recorded Sex Assigned at Not on file 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
--- OUTSIDE RECORDS SUMMARY | 2025-08-05 12:26 | XMS_ITS | Clinical Summary ---
Author Organization [facility] Address [address] [place] [address] Care Team Providers Care Inventory Specialist Name Role Phone Perez, Andrzej Moreno DO Primary Care Provider [phone] Allergies Active Allergy Reactions Criticality Noted Date Comments Amoxicillin Diarrhea Low 03/29/2014 Medications insulin NPH-regular (HUMULIN 70-30,NOVOLIN 70-30) 100 unit/mL (70-30) vial Inject by subcutaneous injection 2 times daily before meals. Sliding scale Active insulin glargine (LANTUS) 100 unit/mL injection Inject 18 Units by subcutaneous injection daily at bedtime. Active OXcarbazepine (TRILEPTAL) 600 mg tablet Take 600 mg by mouth 2 times daily. 2 Active traMADoL (ULTRAM) 50 mg tablet Take 2 Tablet (100 mg) by mouth every 6 hours as needed for Pain. 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, s/p PPV 12/10 2021 OS, 10/22/2021 OS 12/05/2008 Resolved Problems Problem Noted Date Diagnosed Date Resolved Date Dehydration 08/17/2016 08/20/2016 Volume depletion 08/17/2016 08/20/2016 AUGUSTA (acute kidney injury) 08/17/2016 Nausea and vomiting 08/17/2016 08/20/20 16 Immunizations Immunization Administration Dates Next Due (INFANRIX)(6 WKS-6 YRS) DIPT HERIA, TETANUS TOXOIDS, AND ACCELLULAR PERTUSSIS VACCINE (DTAP), 0.5 ML IM 12/12/1998,11/26/1995,1994,1994,1994 (IPOL)(6 WKS AND UP) POLIOVI NICK VACCINE, INACTIVATED (IPV), 3 DOSE, SUBCUT OR IM 12/12/1998,11/26/1995,1994,1993 (M-M-R II/PRIORIX)(12 MO UP) MEASLES, MUMPS AND RUBELLA VIRUS VACCINE, 0.5 ML IM/SUBCUT 12/12/1998,11/26/1995 Dt Dtp Dtap Vaccine 12/12/1998,199 6,1994,1994,1994 HIB, Unspecified Formulation 11/26/1995, 1994,1994,1993 Hepatitis A Vaccine 12/12/1998,07/21/1998,1997 Hepatitis B Vaccine 11/23/1997,03/31/1997,1993 IPV/OPV 12/12/1998,199 6,1994,1993 Influenza Seasonal Unspecifi ed Formulation IM [...] at Not on file Legal Sex Male 8:33 AM BAND TIER Gender Identity Not on file Sexual Orientation Not on file Last Filed Vital Signs Vital Sign Reading Time Taken Comments Blood Pressure 142/88 12/10/2021 11:10 AM CDT Pulse 73 12/10/2021 11:10 AM CDT Temperature 36.4 C (97.6 F) 12/10/2021 10:14 AM CDT Respiratory Rate 19 12/10/2021 11:10 AM CDT Oxygen Saturation 97% 12/10/2021 11:10 AM CDT Inhaled Oxygen Concentration - - Weight 62.6 kg (138 lb) 12/10/2021 6:58 AM CDT Height 175.3 cm (5' 9 ) 12/10/2021 6:58 AM CDT Body Mass Index 20.38 12/10/2021 6:58 AM CDT Plan of Treatment Health Maintenance Due Date Last Done Comments DTAP/TDAP/TD VACCINES (6 - Tdap) 2005 12/12/1998, 12/12/1998, 11/26/1995, Additional history exists DIABETES ANNUAL FOOT EXAM 2012 DIABETES MICROALBUMIN ANNUAL SCREEN 2012 12/26/2008 LDL CHOLESTEROL ANNUAL 2012 DIABETES HBA1C Q 6 MONTHS 02/17/2017 08/20/2016, HPV VACCINES (1 - 3-dose SCD M series) 2021 DIABETES ANNUAL RETINAL EXAM 11/26/2023, 11/26/2022, 11/26/2022, Additional history exists INFLUENZA VACCINE (#1) 2025 5, 07/10/2004, 09/05/2003 HEPATITIS B VACCINES Completed 11/23/1997, 03/31/1997, 1994 Procedures Procedure Name Priority Date/Time Associated Diagnosis Comments HEMOGLOBIN A1C Routine 08/20/2016 9:42 AM BAND TIER MICROALBUMIN/CREATIN INE RATIO, RANDOM UR Routine 12/26/2008 8:25 AM CDT from Last 3 Months or Most Recently Relevant to Health Maintenance Results * (ABNORMAL) HEMOGLOBIN A1C (08/20/2016 9:42 AM BAND TIER) HEMOGLOBIN A1C 11.4(H) 4.8 - 5.9 % 08/20/2016 10:03 AM BAND TIER [facility] EST. AVG GLUCOSE, A1C 280 mg/dL 08/20/2016 10:03 AM BAND TIER [facility] Blood Venipuncture / Unknown 08/20/2016 9:42 AM BAND TIER 08/20/2016 9:42 AM BAND TIER us Joleen Fermin MD CHEMISTRY ORDERABLES F inal Result Performing Organization Address [facility] Co de Phone Number [facility] CLIA # [id number] [address] [place] [address] [facility] CLIA # [id number] [address] [place] [address] * MICROALBUMIN/CREATININE RATIO, RANDOM UR (12/26/2008 8:25 AM CDT) MICROALBUMIN URINE See Sep Report 12/29/2008 9:16 AM CDT [facility] Urine 12/26/2008 8:25 AM CDT 12/27/2008 7:49 AM CDT Historical Provider URINE ORDERABLES Edited Resu lt - Final Performing Organization Address [facility] Co de Phone Number INTERFACE SYSTEM Refer to clinic/hospital department [facility] CLIA # [id number] [address] [facility] [place] [address] from Last 3 Months or Most Recently Relevant to Health Maintenance Insurance [address] [place] [address] [employer] MED[employer] * Guarantor: [employer] Account Type Relation to Patient Date of Phone Billing Address Corporate Employer [employer] Advance Directives For more information, please contact: [phone] * Full Code (Latest Code Status on File) Date Activated Date Inactivated Comments 12/10/2021 6:46 AM 12/10/2021 1:35 PM Care Teams Inventory Specialist Relationship Specialty Start Date End Date Andrzej Todd DO [address] [place] [phone] PCP - General Family Practice 08/20/16
--- OUTSIDE RECORDS SUMMARY | 2025-08-05 12:26 | XMS_ITS | Encounter Summary ---
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
--- OUTSIDE RECORDS SUMMARY | 2025-08-05 12:26 | XMS_ITS | Encounter Summary ---
Author Organization [facility] Address [address] [place] [address] Care Team Providers Care Commutator Assembler Name Role Phone Andrzej Todd DO Primary Care Provider [phone] Encounter Details Date Type Department Care Team (Late st Contact Info) Description 11/29/2003 Outpatient Historical [facility] Diabetic Program Kaiden Rios Julianna 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
--- OUTSIDE RECORDS SUMMARY | 2025-08-05 12:26 | XMS_ITS | Encounter Summary ---
Author Organization [facility] Address [address] [place] [address] Care Team Providers Care Regulatory Submissions Specialist Name Role Phone Andrzej Todd DO Primary Care Provider [phone] Encounter Details Date Type Department Care Team (Late st Contact Info) Description 04/22/2001 Outpatient Historical [facility] Family Medicine- [address] [place] [address] Social History Tobacco Use Types Packs/Day Years Used Date Smoking Tobacco: Never Assessed Sex and Gender Information Value Date Recorded Sex Assigned at Not on file 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
--- OUTSIDE RECORDS SUMMARY | 2025-08-05 12:26 | XMS_ITS | Encounter Summary ---
Author Organization [facility] Address [address] [place] [address] Care Team Providers Care Prototype Carpenter Name Role Phone Andrzej Todd DO Primary Care Provider [phone] Encounter Details Date Type Department Care Team (Latest Contact Info) Description 01/30/2004 Outpatient Historical [facility] Diabetic Program Kaiden Rios Julianna 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
--- OUTSIDE RECORDS SUMMARY | 2025-08-05 12:26 | XMS_ITS | Encounter Summary ---
Author Organization [facility] Address [address] [place] [address] Care Team Providers Care Kindergarten Paraprofessional Name Role Phone Andrzej Todd DO Primary Care Provider [phone] Encounter Details Date Type Department Care Team (Latest Contact Info) Description 02/22/2003 Outpatient Historical [facility] Medicine [place] [address] [facility] [address] [place] [phone] Kosta Baer DO NO ADDRESS ON FILE DYSURIA (Primary Dx); ABDOMINAL PAIN UNSPEC SITE; CHEST PAIN NOS Social History Tobacco Use Types Packs/Day Years Used Date Smoking Tobacco: Never Assessed Sex and Gender Information Value Date Recorded Sex Assigned at Not on file 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
--- OUTSIDE RECORDS SUMMARY | 2025-08-05 12:26 | XMS_ITS | Encounter Summary ---
Author Organization [facility] Address [address] [place] [address] Care Team Providers Care Clinic Assistant Name Role Phone Andrzej Todd DO Primary Care Provider [phone] Encounter Details Date Type Department Care Team (Latest Contact Info) Description 01/07/2006 Outpatient Historical [facility] Family Medicine- [place] [address] [place] [address] Samanta Vivar NP NO ADDRESS ON FILE Dermatitis due to Plant (Primary Dx); DM w/o Complication Type I (CMS/HCC) Social History Tobacco Use Types Packs/Day Years Used Date Smoking Tobacco: Never Assessed Sex and Gender Information Value Date Recorded Sex Assigned at Not on file 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
--- OUTSIDE RECORDS SUMMARY | 2025-08-05 12:26 | XMS_ITS | Encounter Summary ---
Author Organization [facility] Address [address] [place] [address] Care Team Providers Care Archives Director Name Role Phone Andrzej Todd DO Primary Care Provider [phone] Encounter Details Date Type Department Care Team (Latest Contact Info) Description 10/12/2002 Outpatient Historical [facility] Medicine [place] [address] [facility] [address] [place] [phone] Kosta Baer DO NO ADDRESS ON FILE ACUTE TONSILLITIS (Primary Dx); ACUTE BRONCHITIS Social History Tobacco Use Types Packs/Day Years Used Date Smoking Tobacco: Never Assessed Sex and Gender Information Value Date Recorded Sex Assigned at Not on file 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
--- OUTSIDE RECORDS SUMMARY | 2025-08-05 12:26 | XMS_ITS | Encounter Summary ---
Author Organization [facility] Address [address] [place] [address] Care Team Providers Care Ocean Lifeguard Specialist Name Role Phone Andrzej Todd Primary Care Provider [phone] Encounter Details Date Type Department Care Team (Latest Contact Info) Description 11/19/2005 Outpatient Historical [facility] [address] [place] [address] Ailin Samuel, 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 Gender Identity Not on file Sexual Orientation Not on file documented as of this encounter Plan of Treatment Not on file documented as of this encounter Procedures Procedure Name Priority Date/Time Associated Diagnosis Comments HEMOGLOBIN A1C Routine 11/19/2005 4:00 PM GUEST SERVICE AIDE documented in this encounter Results * (ABNORMAL) HEMOGLOBIN A1C (11/19/2005 4:00 PM GUEST SERVICE AIDE) HEMOGLOBIN A1C 8.7(H) 4.0 - 6.0 %A1C INTERFACE SYSTEM 11/19/2005 4:00 PM GUEST SERVICE AIDE us Historical Provider CHEMISTRY ORDERABLES Final R esult INTERFACE SYSTEM Refer to clinic/hospital department documented in this encounter Visit Diagnoses Diagnosis Type I (juvenile type) diabetes mellitus without mention of complication, uncontrolled- Primary documented in this encounter Care Teams Ocean Lifeguard Specialist Relationship Specialty Start Date End Date Andrzej Todd DO [address] [place] [address] PCP - General Family Practice 08/20/16 documented as of this encounter
--- OUTSIDE RECORDS SUMMARY | 2025-08-05 12:26 | XMS_ITS | Encounter Summary ---
Author Organization [facility] Address [address] [place] [address] Care Team Providers Care Pier Master Assistant Name Role Phone Andrzej Todd DO Primary Care Provider [phone] Encounter Details Date Type Department Care Team (Latest Contact Info) Description 09/17/2005 Outpatient Historical [facility] Diabetic Program Kaiden Rios Julianna [address] [place] [address] Ailin Samuel, [facility] [address] [place] [address] DIABETES MELLITUS TYPE I UNCONTR UNCOMPL (Primary Dx) Social History Tobacco Use Types Packs/Day Years Used Date Smoking Tobacco: Never Assessed Sex and Gender Information Value Date Recorded Sex Assigned at Not on file Legal Sex Male 3:21 AM HEALTH SPECIALIST Gender Identity Not on file Sexual Orientation Not on file documented as of this encounter Plan of Treatment Not on file documented as of this encounter Visit Diagnoses Diagnosis Type I (juvenile type) diabetes mellitus without mention of complication, uncontrolled- Primary documented in this encounter Care Teams Pier Master Assistant Relationship Specialty Start Date End Date Andrzej Todd DO [address] [place] [phone] PCP - General Family Practice 08/20/16 documented as of this encounter
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
--- OUTSIDE RECORDS SUMMARY | 2025-08-05 12:26 | XMS_ITS | Encounter Summary ---
Author Organization [facility] Address [address] [place] [address] Care Team Providers Care Catering Sous Chef Name Role Phone Andrzej Todd DO Primary Care Provider [phone] Encounter Details Date Type Department Care Team (Latest Contact Info) Description 06/27/2005 Outpatient Historical [facility] Medicine [place] [address] [facility] [address] [place] [address] Beatriz Haq, SHIRT TRIMMER [address] [place] [address] Vaccine for influenza (Primary Dx) Social History Tobacco Use Types Packs/Day Years Used Date Smoking Tobacco: Never Assessed Sex and Gender Information Value Date Recorded Sex Assigned at Not on file 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
--- OUTSIDE RECORDS SUMMARY | 2025-08-05 12:26 | XMS_ITS | Encounter Summary ---
Author Organization [facility] Address [address] [place] [address] Care Team Providers Care Orange Grower Name Role Phone Andrzej Todd DO Primary Care Provider [phone] Encounter Details Date Type Department Care Team (Late st Contact Info) Description 07/09/2005 Outpatient Historical [facility] Diabetic Program Kaiden Rios Julianna 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
--- OUTSIDE RECORDS SUMMARY | 2025-08-05 12:26 | XMS_ITS | Encounter Summary ---
Author Organization [facility] Address [address] [place] [address] Care Team Providers Care Nursing Home Assistant Name Role Phone Andrzej Todd DO Primary Care Provider [phone] Encounter Details Date Type Department Care Team (Latest Contact Info) Description 03/17/2003 Outpatient Historical [facility] Medicine [place] [address] [facility] [address] [place] [phone] Jessica Alonso MD NO ADDRESS ON FILE DERMATITIS NOS (Primary Dx); CELLULITIS NOS Social History Tobacco Use Types Packs/Day Years Used Date Smoking Tobacco: Never Assessed Sex and Gender Information Value Date Recorded Sex Assigned at Not on file Legal Sex Male 3:21 AM DIRECTOR OF INDIVIDUAL GIVING Gender Identity Not on file Sexual Orientation Not on file documented as of this encounter Plan of Treatment Not on file documented as of this encounter Visit Diagnoses Diagnosis Contact dermatitis and other eczema, due to unspecified cause- Primary Cellulitis and abscess of unspecified site documented in this encounter Care Teams Nursing Home Assistant Relationship Specialty Start Date End Date Andrzej Todd DO [facility] [place] [address] PCP - General Family Practice 08/20/16 documented as of this encounter
--- OUTSIDE RECORDS SUMMARY | 2025-08-05 12:26 | XMS_ITS | Encounter Summary ---
Author Organization [facility] Address [address] [place] [address] Care Team Providers Care As400 Consultant Name Role Phone Andrzej Todd DO Primary Care Provider [phone] Encounter Details Date Type Department Care Team (Latest Contact Info) Description 09/05/2003 Outpatient Historical [facility] Medicine [place] [address] [facility] [address] [place] [phone] Albert Joseph MD [address] [facility] [address] [place] [address] Vaccine for influenza (Primary Dx) Social History Tobacco Use Types Packs/Day Years Used Date Smoking Tobacco: Never Assessed Sex and Gender Information Value Date Recorded Sex Assigned at Not on file 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
--- OUTSIDE RECORDS SUMMARY | 2025-08-05 12:26 | XMS_ITS | Encounter Summary ---
Author Organization [facility] Address [address] [place] [address] Care Team Providers Care Metal Window Screen Assembler Name Role Phone Andrzej Todd DO Primary Care Provider [phone] Encounter Details Date Type Department Care Team (Latest Contact Info) Description 07/14/2007 Outpatient Historical [facility] Diabetic Program Kaiden Rios Julianna 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
--- OUTSIDE RECORDS SUMMARY | 2025-08-05 12:26 | XMS_ITS | Encounter Summary ---
Author Organization [facility] Address [address] [place] [address] Care Team Providers Care Inverform Machine Operator Name Role Phone Anrdzej Todd DO Primary Care Provider [phone] Encounter Details Date Type Department Care Team (Latest Contact Info) Description 11/01/2004 Outpatient Historical [facility] Medicine [place] [address] [facility] [address] [place] [address] Samanta Vivar NP NO ADDRESS ON FILE ACUTE PHARYNGITIS (Primary Dx); DIABETES MELLITUS TYPE I-UNCOMPL (CMS/[facility]) Social History Tobacco Use Types Packs/Day Years Used Date Smoking Tobacco: Never Assessed Sex and Gender Information Value Date Recorded Sex Assigned at Not on file 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
--- OUTSIDE RECORDS SUMMARY | 2025-08-05 12:26 | XMS_ITS | Encounter Summary ---
Author Organization [facility] Address [address] [place] [address] Care Team Providers Care Chief Scientist Name Role Phone Andrzej Todd DO Primary Care Provider [phone] Encounter Details Date Type Department Care Team (Latest Contact Info) Description 11/15/2003 Outpatient Historical [facility] Medicine [place] [address] [facility] [address] [place] [address] Albert Joseph MD [address] [facility] [address] [place] [address] ACUTE PHARYNGITIS (Primary Dx); Pain in limb; DIABETES UNCOMPL GENEVIEVE-TYPE I (CMS/HCC) Social History Tobacco Use Types Packs/Day Years Used Date Smoking Tobacco: Never Assessed Sex and Gender Information Value Date Recorded Sex Assigned at Not on file 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 Sex 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
--- OUTSIDE RECORDS SUMMARY | 2025-08-05 12:26 | XMS_ITS | Encounter Summary ---
Author Organization [facility] Address [address] [place] [address] Care Team Providers Care Retail Customer Service Specialist Name Role Phone Andrzej Todd DO Primary Care Provider [phone] Encounter Details Date Type Department Care Team (Latest Contact Info) Description 11/29/2003 Outpatient Historical [facility] Diabetic Program Kaiden Rios Julianna [address] [place] [address] Ailin Samuel, [facility] [address] [place] [address] DIABETES UNCOMPL GENEVIEVE-UNCONTRLLED (Primary Dx) Social History Tobacco Use Types Packs/Day Years Used Date Smoking Tobacco: Never Assessed Sex and Gender Information Value Date Recorded Sex Assigned at Not on file Legal Sex Male 3:21 AM PATIENT ACCESS Gender Identity Not on file Sexual Orientation Not on file documented as of this encounter Plan of Treatment Not on file documented as of this encounter Visit Diagnoses Diagnosis Type I (juvenile type) diabetes mellitus without mention of complication, uncontrolled- Primary documented in this encounter Care Teams Retail Customer Service Specialist Relationship Specialty Start Date End Date Andrzej Todd DO [address] [place] [phone] PCP - General Family Practice 08/20/16 documented as of this encounter
--- OUTSIDE RECORDS SUMMARY | 2025-08-05 12:26 | XMS_ITS | Encounter Summary ---
Author Organization [facility] Address [address] [place] [address] Care Team Providers Care Midlevel Provider Name Role Phone Andrzej Todd DO Primary Care Provider [phone] Encounter Details Date Type Department Care Team (Latest Contact Info) Description 09/14/2007 Outpatient Historical [facility] Diabetic Program Kaiden Rios Julianna 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
--- OUTSIDE RECORDS SUMMARY | 2025-08-05 12:26 | XMS_ITS | Encounter Summary ---
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
--- OUTSIDE RECORDS SUMMARY | 2025-08-05 12:26 | XMS_ITS | Encounter Summary ---
Author Organization [facility] Address [address] [place] [address] Care Team Providers Care Provider Network Manager Name Role Phone Andrzej Todd DO Primary Care Provider [phone] Encounter Details Date Type Department Care Team (Latest Contact Info) Description 06/03/2007 Outpatient Historical [facility] Family Medicine- [address] [place] [address] Samanta Vivar NP NO ADDRESS ON FILE Nausea with Vomiting (Primary Dx); Volume Depletion, Unspecified; Acute Pharyngitis; DM w/o Complication Type I (CMS/HCC) Social History Tobacco Use Types Packs/Day Years Used Date Smoking Tobacco: Never Assessed Sex and Gender Information Value Date Recorded Sex Assigned at Not on file 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 Sex Male 3:21 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 Gender Identity Not on file Sexual Orientation Not on file documented as of this encounter Plan of Treatment Not on file documented as of this encounter Visit Diagnoses Diagnosis Nausea with vomiting- Primary Volume depletion, unspecified Acute pharyngitis Type I (juvenile type) diabetes mellitus without mention of complication, not stated as uncontrolled documented in this encounter Care Teams Provider Network Manager Relationship Specialty Start Date End Date Andrzej Todd DO [address] [place] [phone] PCP - General Family Practice 08/20/16 documented as of this encounter
--- OUTSIDE RECORDS SUMMARY | 2025-08-05 12:26 | XMS_ITS | Encounter Summary ---
Author Organization [facility] Address [address] [place] [address] Care Team Providers Care Dental Laboratory Manager Name Role Phone Andrzej Todd DO Primary Care Provider Encounter Details Date Type Department Care Team (Latest Contact Info) Description 07/10/2004 Outpatient Historical [facility] Medicine [place] [address] [facility] [address] [place] [address] Samanta Vivar NP NO ADDRESS ON FILE Vaccine for influenza (Primary Dx) Social History Tobacco Use Types Packs/Day Years Used Date Smoking Tobacco: Never Assessed Sex and Gender Information Value Date Recorded Sex Assigned at Not on file 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
--- OUTSIDE RECORDS SUMMARY | 2025-08-05 12:26 | XMS_ITS | Encounter Summary ---
Author Organization [facility] Address [address] [place] [address] Care Team Providers Care Elastic Yarn Twister Name Role Phone Andrzej Todd DO Primary Care Provider [phone] Encounter Details Date Type Department Care Team (Latest Contact Info) Description 11/29/2003 Outpatient Historical [facility] Diabetic Program Kaiden Rios Julianna [address] [place] [address] Non-Staff, Physician NO ADDRESS ON FILE DIABETES UNCOMPL GENEVIEVE-UNCONTRLLED (Primary Dx) Social History Tobacco Use Types Packs/Day Years Used Date Smoking Tobacco: Never Assessed Sex and Gender Information Value Date Recorded Sex Assigned at Not on file Legal Sex Male 3:21 AM MOLD CAPPER HELPER Gender Identity Not on file Sexual Orientation Not on file documented as of this encounter Plan of Treatment Not on file documented as of this encounter Visit Diagnoses Diagnosis Type I (juvenile type) diabetes mellitus without mention of complication, uncontrolled- Primary documented in this encounter Care Teams Elastic Yarn Twister Relationship Specialty Start Date End Date Andrzej Todd DO [address] [place] [address] PCP - General Family Practice 08/20/16 documented as of this encounter
--- OUTSIDE RECORDS SUMMARY | 2025-08-05 12:26 | XMS_ITS | Patient Health Record ---
Author Organization [facility] Address [address] [place] [address] Care Team Providers Care Radiology Nurse Name Role Phone Andrzej Todd Primary Care Provider Lolita TERRY [place]TE Unavailable [phone] Allergies No Known Allergies Reason For Referral No Information Medications Medication SIG (Take, Route, Frequency, Duration) Notes Start Date End Date Status Cannabinoids *Reorder from [employer] for eRx and Interaction Alerts* Active Augmentin 500-125 MG 1 tablet Orally every 12 hrs Not-Taking Lisinopril 10 MG 1 tablet Orally Once a day Active Insulin NPH (Human) (Isophane) 100 UNIT/ML as directed Subcutaneous *Reorder from [employer] for eRx and Interaction Alerts* Active OXcarbazepine *Pick strength-form from [employer] for eRX* Active Problems Problem Type SNOMED Code ICD Code Onset Dates Problem Status W/U Status Risk Notes Problem Scrotal pain (60085451) Scrotal pain (N50.82) Active confirmed Problem Erectile dysfunction (disorder) (262134735) ED (erectile dysfunction) (N52.9) Active confirmed Problem Diabetes mellitus (38028722) Diabetes mellitus (E11.9) Active confirmed Problem Chronic kidney disease (704271733) CKD (chronic kidney disease) (N18.9) Active confirmed Problem Male infertility (8167564) 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) Active confirmed Problem Groin abscess (50426165) Groin abscess (L02.214) Active confirmed Problem Counseling for infertility (362494728) Infertility counseling (Z31.69) Active confirmed Problem History of malignant neoplasm of brain (297978419) History of brain cancer (Z85.841) Active confirmed Problem Male infertility (1325384) Male fertility problems (N46.9) Active confirmed Problem Hydrocele, unspecified hydrocele type (N43.3) Active confirmed Problem Erectile dysfunction (992479072) Erectile dysfunction (N52.9) Active confirmed Problem Epididymal cyst (58311355) Epididymal cyst (N50.3) Active confirmed Plan Of Treatment Pending Test Test Name Order Date Semen Analysis, Basic 10/06/2023 Semen Analysis, Basic 12/01/2023 Basic Metabolic Panel [id number] 09/17/2022 CBC w\ Auto Diff [id number] 09/17/2022 Culture Urine Reflex--[id number] 09/17/2022 US Doppler Renal Artery-[id number] 08/05/2022 US Scrotum/Testicle-[id number] 08/05/2022 US Scrotum/Testicle-[id number] 05/27/2022 Electrocardiogram 12 Lead Tracing-[id number] 09/17/2022 Insurance Providers Payer Name Payer Address Payer Phone Subscriber Number Group Number Insured Name Patient Relationship to Insured Coverage Start Date Coverage End Date [facility] Health Plan [address] [place], [place] [id number] [phone] [id number] Cayetano Moore od Self - patient is the insured Medications Administered Medication Instructions Date of Administration Dosage Notes Rocephin 02/12/2024 1 g [facility] [phone] Medical (General) History Medical History History ICD Code diabetes, type 1 kidney disease swollen testicle Surgical History Surgery Date(Month/Year) hernia repair 2010 cytoma removal 06/2017 complete teeth extraction 2022 Hospitalization History Reason Date(Month/Year) ER visit high potassium 08/02/2022
--- OUTSIDE RECORDS SUMMARY | 2025-08-05 12:26 | XMS_ITS | Encounter Summary ---
Author Organization [facility] Address [address] [place] [address] Care Team Providers Care Azure Principal Solution Specialist Name Role Phone Andrzej Todd DO Primary Care Provider [phone] Encounter Details Date Type Department Care Team (Late st Contact Info) Description 04/29/2006 Outpatient Historical [facility] Diabetic Program Kaiden Rios Julianna 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
--- OUTSIDE RECORDS SUMMARY | 2025-08-05 12:26 | XMS_ITS | Encounter Summary ---
Author Organization 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
--- OUTSIDE RECORDS SUMMARY | 2025-08-05 12:26 | XMS_ITS | Encounter Summary ---
Author Organization [facility] Address [address] [place] [address] Care Team Providers Care Tobacco Buyer Name Role Phone Andrzej Todd DO Primary Care Provider [phone] Encounter Details Date Type Department Care Team (Latest Contact Info) Description 01/10/2004 Outpatient Historical [facility] Medicine [place] [address] [facility] [address] [place] [address] Samanta Vivar NP NO ADDRESS ON FILE ACUTE PHARYNGITIS (Primary Dx); DIABETES UNCOMPL GENEVIEVE-TYPE I (CMS/FORMER[facility]); NAUSEA ALONE; DIARRHEA NOS Social History Tobacco Use Types Packs/Day Years Used Date Smoking Tobacco: Never Assessed Sex and Gender Information Value Date Recorded Sex Assigned at Not on file 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 Sex Male 3:21 AM EVENT 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
--- OUTSIDE RECORDS SUMMARY | 2025-08-05 12:26 | XMS_ITS | Encounter Summary ---
Author Organization [facility] Address [address] [place] [address] Care Team Providers Care Physician Industrial Name Role Phone Andrzej Todd DO Primary Care Provider [phone] Encounter Details Date Type Department Care Team (Latest Contact Info) Description 03/18/2006 Outpatient Historical [facility] Julianna [address] [place] [address] Reva Leung MD NO ADDRESS ON FILE Pain in Limb (Primary Dx) Social History Tobacco Use Types Packs/Day Years Used Date Smoking Tobacco: Never Assessed Sex and Gender Information Value Date Recorded Sex Assigned at Not on file Legal Sex Male 3:21 AM INTERPRETER DEAF Gender Identity Not on file Sexual Orientation Not on file documented as of this encounter Plan of Treatment Not on file documented as of this encounter Visit Diagnoses Diagnosis Pain in limb- Primary Pain in soft tissues of limb documented in this encounter Care Teams Physician Industrial Relationship Specialty Start Date End Date Andrzej Todd DO [address] [place] [phone] PCP - General Family Practice 08/20/16 documented as of this encounter
--- OUTSIDE RECORDS SUMMARY | 2025-08-05 12:26 | XMS_ITS | Encounter Summary ---
Author Organization [facility] Address [address] [place] [address] Care Team Providers Care Feed Mill Lab Technician Name Role Phone Andrzej Todd DO Primary Care Provider [phone] Encounter Details Date Type Department Care Team (Late st Contact Info) Description 11/19/2005 Outpatient Historical [facility] Diabetic Program Kaiden Rios Julianna 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
--- OUTSIDE RECORDS SUMMARY | 2025-08-05 12:26 | XMS_ITS | Encounter Summary ---
Author Organization [facility] Address [address] [place] [address] Care Team Providers Care Relocation Manager Name Role Phone Andrzej Todd DO Primary Care Provider [phone] Encounter Details Date Type Department Care Team (Latest Contact Info) Description 08/13/2007 Outpatient Historical [facility] Medicine [place] 104 [facility] [address] [place] [address] Aries Amaral MD NO ADDRESS ON FILE Lumbago (Primary Dx) Social History Tobacco Use Types Packs/Day Years Used Date Smoking Tobacco: Never Assessed Sex and Gender Information Value Date Recorded Sex Assigned at Not on file 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
--- OUTSIDE RECORDS SUMMARY | 2025-08-05 12:26 | XMS_ITS | Encounter Summary ---
Author Organization [facility] Address [address] [place] [address] Care Team Providers Care Ink Jet Operator Name Role Phone Andrzej Todd DO Primary Care Provider [phone] Encounter Details Date Type Department Care Team (Latest Contact Info) Description 12/23/2002 Outpatient Historical [facility] Medicine [place] 104 [facility] 60 [place] [address] Jessica Alonso MD NO ADDRESS ON FILE DERMATITIS NOS (Primary Dx) Social History Tobacco Use Types Packs/Day Years Used Date Smoking Tobacco: Never Assessed Sex and Gender Information Value Date Recorded Sex Assigned at Not on file 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
--- OUTSIDE RECORDS SUMMARY | 2025-08-05 12:26 | XMS_ITS | Encounter Summary ---
Author Organization [facility] Address [address] [place] [address] Care Team Providers Care Hand Buffer Name Role Phone Andrzej Todd DO Primary Care Provider [phone] Encounter Details Date Type Department Care Team (Latest Contact Info) Description 07/22/2006 Outpatient Historical [facility] Medicine [place] 104 [facility] [address] [place] [address] Samanta Vivar NP NO ADDRESS ON FILE Dermatitis due to Plant (Primary Dx) Social History Tobacco Use Types Packs/Day Years Used Date Smoking Tobacco: Never Assessed Sex and Gender Information Value Date Recorded Sex Assigned at Not on file 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
--- OUTSIDE RECORDS SUMMARY | 2025-08-05 12:26 | XMS_ITS | Encounter Summary ---
Author Organization [facility] Address [address] [place] [address] Care Team Providers Care Slabber Light Name Role Phone Andrzej Todd DO Primary Care Provider [phone] Encounter Details Date Type Department Care Team (Late st Contact Info) Description 08/14/2007 Outpatient Historical [facility] Diabetic Program Kaiden Rios Julainna 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
--- OUTSIDE RECORDS SUMMARY | 2025-08-05 12:26 | XMS_ITS | Encounter Summary ---
Author Organization [facility] Address [address] [place] [address] Care Team Providers Care Supervising Chef Name Role Phone Andrzej Todd DO Primary Care Provider [phone] Encounter Details Date Type Department Care Team (Latest Contact Info) Description 01/12/2002 Outpatient Historical [facility] Medicine [place] 104 [facility] [address] [place] [address] Kosta Baer DO NO ADDRESS ON FILE STREP SORE THROAT (Primary Dx) Social History Tobacco Use Types Packs/Day Years Used Date Smoking Tobacco: Never Assessed Sex and Gender Information Value Date Recorded Sex Assigned at Not on file 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
--- OUTSIDE RECORDS SUMMARY | 2025-08-05 12:27 | XMS_ITS | Encounter Summary ---
Author Organization [facility] Address [address] [place] [address] Care Team Providers Care Respiratory Technician Name Role Phone Andrzej Todd DO Primary Care Provider [phone] Encounter Details Date Type Department Care Team (Late st Contact Info) Description 01/08/2008 Outpatient Historical [facility] DEFAULT DEPARTMENT Nabeel Morse MD [facility] [place], [place] [phone] Social History Tobacco Use Types Packs/Day Years Used Date Smoking Tobacco: Never Assessed Sex and Gender Information Value Date Recorded Sex Assigned at Not on file 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
--- OUTSIDE RECORDS SUMMARY | 2025-08-05 12:27 | XMS_ITS | Encounter Summary ---
Author Organization [facility] Address [address] [place] [address] Care Team Providers Care Category Development Manager Name Role Phone Andrzej Todd DO Primary Care Provider [phone] Encounter Details Date Type Department Care Team (Late st Contact Info) Description 02/12/2008 Outpatient Historical [facility] Diabetic Program Kaiden Rios Julianna 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
--- OUTSIDE RECORDS SUMMARY | 2025-08-05 12:27 | XMS_ITS | Encounter Summary ---
Author Organization [facility] Address [address] [place] [address] Care Team Providers Care Concrete Pouring Supervisor Name Role Phone Andrzej Todd DO Primary Care Provider [phone] Encounter Details Date Type Department Care Team (Late st Contact Info) Description 11/11/2007 Outpatient Historical [facility] Medicine [place] 104 [facility] 60 [place] [address] Jessica Alonso MD NO ADDRESS ON FILE Social History Tobacco Use Types Packs/Day Years Used Date Smoking Tobacco: Never Assessed Sex and Gender Information Value Date Recorded Sex Assigned at Not on file 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
--- OUTSIDE RECORDS SUMMARY | 2025-08-05 12:27 | XMS_ITS | Patient Health Record ---
Author Organization [facility] Address [address] [place] [address] Care Team Providers Care Parking Meter Mechanic Name Role Phone Andrzej Todd Primary Care Provider Justine Calderón Unavailable [phone] Allergies No Known Allergies Reason For Referral No Information Medications Medication SIG (Take, Route, Frequency, Duration) Notes Start Date End Date Status Cannabinoids Active Insulin NPH (Human) (Isophane) 100 UNIT/ML Suspension as directed Subcutaneous Act dede OXcarbazepine Active Lisinopril 2.5 MG Tablet 1 tablet Orally Once a day Active Social History Tobacco Use: Social History Observation Description Date Details (start date - stop date) Never Smoker NA - NA Social History Tobacco Use: Social Info Question Answer Notes xTobacco Use/Smoking Are you a nonsmoker Section Notes: smokes cannabis smokes cannabis smokes cannabis smokes cannabis smokes cannabis Problems Problem Type SNOMED Code ICD Code Onset Dates Problem Status W/U Status Risk Notes Problem Scrotal pain (84808063) Scrotal pain (N50.82) Active confirmed Problem Chronic kidney disease (746156967) CKD (chronic kidney disease) (N18.9) Active confirmed Problem Epididymal cyst (29819433) Epididymal cyst (N50.3) Active confirmed Problem History of malignant neoplasm of brain (973135008) History of brain cancer (Z85.841) Active confirmed Problem 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) Active confirmed Problem Hydrocele, unspecified hydrocele type (N43.3) Active confirmed Plan Of Treatment Pending Test Test Name Order Date Basic Metabolic Panel (BMP) 09751 2021 CBC w\ Auto Diff [id number] 09/17/2022 Scrotum/Testicle-[id number] 05/27/2022 Electrocardiogram 12 Lead Tracing-[id number] 09/17/2022 Culture Urine Reflex--[id number] 09/17/2022 Insurance Providers Payer Name Payer Address Payer Phone Subscriber Number Group Number Insured Name Patient Relationship to Insured Coverage Start Date Coverage End Date Home [facility] Health Plan Medicaid Replacement [address] [place] [phone] [id number] Cayetano Moore od Self - patient is the insured Medical (General) History Medical History History ICD Code diabetes, type 1 kidney disease swollen testicle Surgical History Surgery Date(Month/Year) cytoma removal 06/2017 hernia repair 2009 Hospitalization History Reason Date(Month/Year) ER visit high potassium 08/02/2022
--- OUTSIDE RECORDS SUMMARY | 2025-08-05 12:27 | XMS_ITS | Encounter Summary ---
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
--- NOTE | 2025-08-05 12:35 | W.ED.NAVMDI ---
HPI - Nausea/Vomiting/Diarrhea General: Chief complaint: General Medical Stated complaint: ELEVATED BS Source: patient Mode of arrival: EMS Limitations: no limitations History of Present Illness: Patient is a 30-year-old male presents to ED today via EMS for complaint of nausea and vomiting. Patient states he has not felt well over the past 2 days or so. When asked what symptoms he was having, he responds that felt like I was going to have a seizure . Patient states he has not had any recent seizures. He does take Trileptal for epilepsy and has been compliant with this medication. He states he began having nausea and vomiting today. He arrives tachycardic, nauseous, dry heaving. He does report daily marijuana use. No known history of hyperemesis cannabis syndrome. He does have a history of DKA. Blood sugars by EMS when they picked him up were over 500. MD elicited complaint: nausea and vomiting Pertinent past history: other (DM type 1, DKA) Onset (ago): hour(s) Associated nausea: Yes Associated abdominal pain: Yes Location of pain: Diffuse Radiation: diffuse Pain consistency: intermittent Quality: cramping Relieving factors: none Associated symtoms: Reports nausea; Denies change in vision, chest pain, dizziness, dysuria, fatigue, headache(s) or malaise Related Data Home Medications ?Medication ?Instructions ?Recorded ?Confirmed oxcarbazepine 600 mg tablet 900 mg PO BID 02/26/22 08/05/25 atorvastatin 40 mg tablet 40 mg PO DAILY 08/05/25 08/05/25 Previous Rx's ?Medication ?Instructions ?Recorded insulin pump cartridge,automated #1 ea 05/23/22 dose,BT with controller subcutaneous (Omnipod 5 G6 Intro Kit (Gen 5) subcutaneous cartridge with controller) blood-glucose,night order selector,cont #1 ea 10/10/23 (Dexcom G6 Sustain Engineer) blood-glucose transmitter (Dexcom #1 ea 11/30/24 G6 Transmitter device) blood-glucose sensor (Dexcom G6 #9 ea 12/27/24 Sensor device) insulin pump cart,auto,BT,G6/7 #10 ea 01/03/25 (Omnipod 5 G6-G7 Pods (Gen 5) subcutaneous cartridge) insulin aspart U-100 100 unit/mL See Rx Instructions .Route 02/11/25 subcutaneous solution .COMPLEX #40 mL Allergies Allergy/AdvReac Type Severity Reaction Status Date / Time amoxicillin Allergy Doesn't Verified 01/13/25 07:32 work so he doesn't use it Review of Systems Const: Reports: change in appetite; Denies: fever(s), chills, body aches, fatigue or malaise Eyes: Denies: change in vision, blurry vision, photophobia, floaters or seeing flashes Card: Denies: chest pain Resp: Denies: dyspnea GI: Reports: abdominal pain, nausea and vomiting; Denies: diarrhea, constipation, hematochezia or melena : Denies: flank pain, dysuria or hematuria Musc: Denies: neck pain, back pain, extremity pain, extremity swelling, joint pain, joint swelling or joint redness Skin/Breast: Denies: rash Neuro: Denies: headache(s), numbness in extremities, weakness in extremities, sensory changes or dizziness PFSH ED PFSH: Medical History Seizures Hernia Diabetes type 1, uncontrolled Surgical History H/O eye surgery H/O brain surgery Family History Father No problems noted. Mother COPD (chronic obstructive pulmonary disease) Social History Smoking and tobacco/nicotine status: never used tobacco/nicotine Second hand smoke exposure: No Alcohol intake: never Substance/Drug Use: current Substance/Drug use frequency: daily Adopted: No Caregiver/support person: No Lives independently: Yes Household members: significant other and other Housing: Manufactured/Mobile home Marital status: Single Number of children: 0 Highest education level completed: GED or Equivalent service: No Current occupational status: disabled Course Consultations: Consultation #1: Dr. Acosta-accepts to ICU, requesting CT renal Vital Signs: Vital signs: Vital Signs Temperature 97.9 F 08/05/25 12:21 Pulse Rate 91 08/05/25 14:05 Respiratory Rate 19 H 08/05/25 12:21 Blood Pressure 124/65 08/05/25 14:05 Pulse Oximetry 98 08/05/25 14:05 Oxygen Delivery Me thod Room Air 08/05/25 14:05 MDM - Nausea/Vomiting/Diarrhea Medical Decision Making Patient is a 30-year-old type I diabetic here for nausea, vomiting, hyperglycemia with blood sugars near 500 earlier today. He arrived tachycardic, tachypneic, extremely nauseous, active dry heaving. ABG did show mild acidosis with a pH of 7.32. He does have a decreased bicarb 17, elevated gap at 24, elevations to his BUN/Cr at 32/2.8. Serum ketones are negative. He does have urine ketones. Spoke to Dr. Acosta who did want to go ahead and start him on an insulin drip with recommendations for admit to ICU. There was possible clinical concern for hyperemesis cannabis syndrome as patient is a habitual marijuana user-he did get nausea/vomiting relief after Ativan/Haldol and is now resting in NAD. Medical Records I reviewed the patient's medical records. Lab Data I reviewed the patient's lab results. 08/05/25 13:21 08/05/25 13:21 Radiology Impressions Abdomen/Pelvis CT 08/05/25 14:45 IMPRESSION: 1. Mild circumferential urinary bladder wall thickening, possibly secondary to underdistention. Correlate with urinalysis to exclude cystitis. 2. Additional findings, as above. Laboratory Results WBC 12.81 10^3/uL (3.29-11.43) H 08/05/25 13:21 RBC 4.11 10^6/uL (3.85-5.65) 08/05/25 13:21 Hgb 13.00 g/dL (11.27-16.99) 08/05/25 13:21 Hct 37.6 % (37-53) 08/05/25 13:21 MCV 91.5 fl (82-101) 08/05/25 13:21 MCH 31.6 pg (27-33) 08/05/25 13:21 MCHC 34.6 g/dL (30-55) 08/05/25 13:21 RDW 12.0 % (12.1-15.1) L 08/05/25 13:21 Plt Count 209 10^3/cmm (157-399) 08/05/25 13:21 MPV 10.9 fL (7.4-10.4) H 08/05/25 13:21 Neut % (Auto) 93.0 % 08/05/25 13:21 Lymph % (Auto) 3.4 % 08/05/25 13:21 Imperial % (Auto) 2.6 % 08/05/25 13:21 Eos % (Auto) 0.1 % 08/05/25 13:21 Baso % (Auto) 0.3 % 08/05/25 13:21 Neut # (Auto) 11.91 10^3/uL (1.8-7.7) H 08/05/25 13:21 Lymph # (Auto) 0.4 10^3/uL (0.8-4.8) L 08/05/25 13:21 Imperial # (Auto) 0.3 10^3/uL (0.2-0.9) 08/05/25 13:21 Eos # (Auto) 0.0 10^3/uL (0.0-0.8) 08/05/25 13:21 Baso # (Auto) 0.0 10^3/uL (0.0-0.1) 08/05/25 13:21 Nucleated RBC % (auto) 0 % 08/05/25 13: Nucleated RBCs # 0.0 /100WBC 08/05/25 13:21 Specimen Type Arterial 08/05/25 12:28 Sample Site Radial, right 08/05/25 12:28 ABG pH 7.32 (7.35-7.45) L 08/05/25 12:28 ABG pCO2 34.9 mmHg (35-45) L 08/05/25 12:28 ABG pO2 84.1 mmHg (80.0-100.0) 08/05/25 12:28 ABG PO2/FiO2 Ratio 400 08/05/25 12:28 ABG HCO3 17.9 mmol/L (22-26) L 08/05/25 12:28 ABG O2 Saturation 96.4 08/05/25 12:28 ABG Base Excess -7.4 mmol/L (-2.0-2.0) L 08/05/25 12:28 John Test Pos 08/05/25 12:28 A-a O2 Gradient 2.6 mmHg (5-10) L 08/05/25 12:28 Hematocrit 43.9 % (42-52) 08/05/25 12:28 Hgb O2 Saturation 94.8 % (95-100) L 08/05/25 12:28 Carboxyhemoglobin 1.5 %THgb (0.4-20.1) 08/05/25 12:28 Methemoglobin 0.2 % (0.4-1.5) L 08/05/25 12:28 Total Hemoglobin 14.3 g/dL (14-18) 08/05/25 12:28 Sodium 130.0 mmol/L (131-143) L 08/05/25 12:28 Potassium 4.6 mmol/L (3.5-5.0) 08/05/25 12:28 Glucose 554.0 mg/dL (70-115) H 08/05/25 12:28 Ionized Calcium 1.1 mmol/L (1.1-1.4) 08/05/25 12:28 O2 Delivery Device Room air 08/05/25 12:28 FiO2 21.0 % 08/05/25 12:28 Business Planning Manager ID [place] 08/05/25 12:28 Sodium 133 mmol/L (136-145) L 08/05/25 13:21 Potassium 4.0 mmol/L (3.5-5.1) 08/05/25 13:21 Chloride 96 mmol/L (98-107) L 08/05/25 13:21 Carbon Dioxide 17 mmol/L (22-29) L 08/05/25 13:21 Anion Gap 24.0 (5-19) H 08/05/25 13:21 BUN 32 mg/dL (6-20) H 08/05/25 13:21 Creatinine 2.8 mg/dL (0.7-1.2) H 08/05/25 13:21 GFR Calculation 26.6 mL/min (90-130) L 08/05/25 13:21 Glucose 476 mg/dL (65-115) H 08/05/25 13:21 POC Glucose 386 mg/dL (70-110) H 08/05/25 14:51 Calculated Osmolality 304 mOsm/kg (285-295) H 08/05/25 13:21 Calcium 8.1 mg/dL (8.5-10.5) L 08/05/25 13:21 Phosphorus 3.3 mg/dL (2.5-4.5) 08/05/25 13:21 Magnesium 1.8 mg/dL (1.7-2.3) 08/05/25 13:21 Total Bilirubin 0.5 mg/dL (0.15-1.2) 08/05/25 13:21 AST 16 U/L (0-40) 08/05/25 13:21 ALT 16 U/L (0-41) 08/05/25 13:21 Alkaline Phosphatase 123 U/L (40-130) 08/05/25 13:21 Total Protein 6.3 g/dL (6.6-8.7) L 08/05/25 13:21 Albumin 3.9 g/dL (3.5-5.2) 08/05/25 13:21 Globulin 2.4 g/dL (1.3-4.6) 08/05/25 13:21 Urine Color Dark yellow (Yellow) A 08/05/25 14:04 Urine Appearance Cloudy (CLEAR) A 08/05/25 14:04 Urine pH 5.0 (5-7) 08/05/25 14:04 Ur Specific [place] 1.022 (1.005-1.030) 08/05/25 14:04 Urine Protein 2+ (Negative) A 08/05/25 14:04 Urine Glucose (UA) 3+ (Normal) H 08/05/25 14:04 Urine Ketones 1+ (Negative) H 08/05/25 14:04 Urine Blood Negative (Negative) 08/05/25 14:04 Urine Nitrate Negative (Negative) 08/05/25 14:04 Urine Bilirubin Negative (Negative) 08/05/25 14:04 Urine Urobilinogen 1.0 mg/dL (Negative) 08/05/25 14:04 Ur Leukocyte Esterase Negative (Negative) 08/05/25 14:04 Urine RBC 0-2 /hpf (0-2) 08/05/25 14:04 Urine WBC 0-5 /hpf (0-5) 08/05/25 14:04 Ur Squamous Epith Cells 0-5 /hpf (0-5) 08/05/25 14:04 Amorphous Sediment Not Reportable 08/05/25 14:04 Urine Bacteria None seen /hpf (NONE) 08/05/25 14:04 Hyaline Casts 47.99 /lpf 08/05/25 14:04 Urine Sperm 1+ /hpf 08/05/25 14:04 Serum Ketones Negative (Negative) 08/05/25 13:21 XR interpretation done by ED provider, pending radiology final review Discharge Plan Discharge Patient Disposition: Admitted As Inpatient Clinical Impression: Metabolic acidosis, Hyperglycemia, AUGUSTA (acute kidney injury) Condition: Stable Coding Level of Care Code ED Calender Roll Press Operator for Audra Lopez
[2025-08-05 12:40] LABS: ABG PCO2 34.9 mmHg (35-45); ABG PH Result 7.32 (7.35-7.45); Alveolar-Arterial Oxygen Gradi 2.6 mmHg (5-10); Arterial Blood Gas Hematocrit 43.9 % (42-52); Blood Gas Allen Test Pos; Blood Gas Sample Type Arterial; Carboxyhemoglobin 1.5 %THgb (0.4-20.1); Glucose Level-ABG 554.0 mg/dL (70-115); HCO3 ABG 17.9 mmol/L (22-26); Ionized Calcium Level - ABG 1.1 mmol/L (1.1-1.4); Methemoglobin 0.2 % (0.4-1.5); Oxygen Saturation ABG 96.4; PO2 ABG 84.1 mmHg (80.0-100.0); Potassium Level - ABG 4.6 mmol/L (3.5-5.0); Sodium Level - ABG 130.0 mmol/L (131-143)
[2025-08-05 12:41] LABS: Blood Gas Operator Identificat MONRO; Blood Gas Sample Site Radial, right; PO2 FiO2 Ratio Arterial Blood 400
[2025-08-05] MEDS: LORazepam 2 mg/mL INJ 1 mL 1 MG IVP (12:47)
[2025-08-05] MEDS: metoclopramide 5 mg/mL SDV 2 mL 10 MG IVP (12:47)
[2025-08-05] MEDS: haloperidol inj 5 mg/mL INJ 1 mL 2.5 MG IVP (12:48)
[2025-08-05] MEDS: insulin regular-human 100 units/1 mL 10 UNIT IVP (12:49)
--- NOTE | 2025-08-05 13:16 | PC.PHAR ---
Pts' will arrive in 30 minutes and she will verify medications.1:15pm
[2025-08-05 13:45] LABS: Hematocrit 37.6 % (37-53); Hemoglobin 13.00 g/dL (11.27-16.99); Mean Corpuscular HGB Conc 34.6 g/dL (30-55); Mean Corpuscular Hemoglobin 31.6 pg (27-33); Mean Corpuscular Volume 91.5 fl (82-101); Nucleated Red Blood Cells % 0 %; Platelet Count 209 10^3/cmm (157-399); Red Blood Count 4.11 10^6/uL (3.85-5.65); White Blood Count 12.81 10^3/uL (3.29-11.43)
[2025-08-05 13:59] LABS: Ketone (Acetest) Serum Negative (Negative)
[2025-08-05 14:07] LABS: Alanine Aminotransferase 16 U/L (0-41); Albumin Level 3.9 g/dL (3.5-5.2); Alkaline Phosphatase 123 U/L (40-130); Anion Gap 24.0 (5-19); Aspartate Amino Transferase 16 U/L (0-40); Blood Urea Nitrogen 32 mg/dL (6-20); Calcium 8.1 mg/dL (8.5-10.5); Carbon Dioxide 17 mmol/L (22-29); Chloride 96 mmol/L (98-107); Creatinine Clr Calc Pharmacy 36.8654; Globulin 2.4 g/dL (1.3-4.6); Glucose 476 mg/dL (65-115); Osmolality Calculated 304 mOsm/kg (285-295); Potassium 4.0 mmol/L (3.5-5.1); Sodium 133 mmol/L (136-145); Total Protein 6.3 g/dL (6.6-8.7)
[2025-08-05 14:14] LABS: Glucose Urine UA 3+ (Normal); Nitrate Urine Negative (Negative); Specific Gravity, Urine 1.022 (1.005-1.030)
[2025-08-05 14:17] LABS: Add Urine Microscopic? YES
[2025-08-05 14:40] LABS: UA Slide Review UA Slide Review Perf
--- NOTE | 2025-08-05 14:45 | CTR_ITS ---
PROCEDURE INFORMATION: Exam: CT Abdomen And Pelvis Without Contrast Exam date and time: 08/05/2025 2:56 PM Age: 30 years old Clinical indication: Abnormal findings; Abnormal lab test; Abnormal kidney function lab tests; Additional info: Elevation in bun/cr TECHNIQUE: Imaging protocol: Computed tomography of the abdomen and pelvis without contrast. Axial, coronal and sagittal reformatted images were created and reviewed. Radiation optimization: All CT scans at this facility use at least one of these dose optimization techniques: automated exposure control; mA and/or kV adjustment per patient size (includes targeted exams where dose is matched to clinical indication); or iterative reconstruction. COMPARISON: US renal BI* [id number] 07/25/2022 12:47 PM RADIATION DOSE METRICS: Total DLP (mGy-cm): 344.73 FINDINGS: Liver: Unremarkable. Gallbladder and biliary ducts: No radiodense gallstones. No biliary ductal dilatation. Pancreas: Unremarkable. Spleen: Unremarkable. Adrenal glands: Normal. No mass. Kidneys and ureters: Nonobstructing bilateral renal calculi. No hydronephrosis. Stomach and bowel: Moderate amount of retained stool in the colon. No obstruction. No bowel wall thickening. No pneumatosis. Appendix: Normal. Intraperitoneal space: No free fluid. No organized fluid collection. No free air. Vasculature: Unremarkable. No aneurysm. Lymph nodes: No pathologically enlarged lymph nodes. Urinary bladder: Mild circumferential urinary bladder wall thickening, possibly secondary to underdistention. Reproductive: Unremarkable. Bones/joints: No acute osseous abnormality. Soft tissues: Unremarkable. CT/CT kidney stone [id number] IMPRESSION: 1. Mild circumferential urinary bladder wall thickening, possibly secondary to underdistention. Correlate with urinalysis to exclude cystitis. 2. Additional findings, as above.
--- NOTE | 2025-08-05 14:47 | PC.PHAR ---
Addendum entered by Karla Figueroa 08/05/25 16:10: Update from Dr Jin's nurse-short acting insulin u-100 is 5-15 units before meals and sliding scale of 1 unit per 30 carbs. Addendum entered by Karla Figueroa 08/05/25 15:57: Dr Jin's nurse called with providers note on insulins. Currently shows insulin aspart u-100-15 units before meals plus sliding scale. Nurse says she has never seen such dosing notes and provider is not in the office to ask. Lantus shows 14 units at bedtime. Original Note: states pt has short acting insulin: Humalog -aspart. instructions are for 30 units per pump. last fill at the pharmacy was 05/29/25 90ds-they have no instructions for self administration. state pt has long acting Lantus insulin for bedtime dose but pharmacy has no order for it at all. Pt also takes Oxcarbazepine 600mg-1.5 tablets bid-pharmacy states last filled 07/01/25 [address]ds. Left message with Dr Jin's office to see if they have instructions on fast acting insulin and what the standing order is on the Lantus long acting insulin.
[2025-08-05 14:52] LABS: Magnesium 1.8 mg/dL (1.7-2.3)
[2025-08-05] MEDS: dextrose 5%-ns + KCl 20 20 MEQ/1,000 ML BAG 100 MEQ IV (15:13)
[2025-08-05] MEDS: INSULIN REGULAR IN 0.9 % NACL 100 UNIT/100 ML BAG 6.5 UNIT IV (15:19)
--- NOTE | 2025-08-05 15:55 | XRR_ITS ---
PROCEDURE INFORMATION: Exam: XR Chest Exam date and time: 08/05/2025 4:27 PM Age: 30 years old Clinical indication: Shortness of breath; Additional info: Assess for pneumonia TECHNIQUE: Imaging protocol: Radiologic exam of the chest. Views: 1 view. COMPARISON: CR XR chest 1V [id number] 03/06/2019 5:22 PM FINDINGS: Lungs: Unremarkable. No consolidation. Pleural spaces: Unremarkable. No pleural effusion. No pneumothorax. Heart/Mediastinum: Unremarkable. No cardiomegaly. Bones/joints: Unremarkable. XR/XR chest 1V portable [id number] IMPRESSION: No acute radiographic findings.
--- NOTE | 2025-08-05 16:03 | PC.NURSE ---
bg 357 at 1603
--- NOTE | 2025-08-05 16:29 | PC.NURSE ---
BG [id number] @[id number]
--- NOTE | 2025-08-05 16:45 | PM.HP ---
Providers/Chief Complaint Admitting Physician: Di Acosta MD Primary Care Provider: Andrzej Todd DO Chief Complaint: ELEVATED BS History of Present Illness Cayetano Dill is a 30 year old male With type 1 diabetes mellitus was on Lantus and sliding scale insulin during the day. He presented to the emergency room with 2 to 3 days of generalized weakness malaise multiple episodes of vomiting today. He has been found to be in DKA. Patient reported having URI type symptoms and thought he may have had the flu. No recent change in insulin dosing. He had a Dexcom previously but then lost it due to loss of Medicaid. Labs today are notable for increased anion gap, hyperglycemia and ketonuria consistent with DKA. Patient has been started on insulin drip in the emergency room. Review of Systems General: Reports: 10 or more systems reviewed and unremarkable except in HPI and below Const: Denies: fever(s), chills or body aches Eyes: Denies: change in vision, blurry vision or photophobia ENMT: Reports: hoarseness; Denies: throat pain, enlarged tonsils, odynophagia or nasal congestion Card: Denies: chest pain, palpitations, irregular heart rhythm, edema, swelling of feet/ankles, lightheadedness, pre-syncope, dyspnea on exertion or orthopnea Resp: Denies: dyspnea, productive cough, non-productive cough, wheezing, stridor, pain on inspiration, change in phlegm color, hemoptysis or chest congestion GI: Denies: abdominal pain, nausea, vomiting, hematemesis, coffee ground emesis, dysphagia, heartburn, diarrhea, constipation, GI cramping, change in stool character, hematochezia or melena : Denies: flank pain, dysuria, urinary frequency, urinary urgency, urinary hesitancy or hematuria Musc: Denies: neck pain, back pain, extremity pain, joint swelling, joint warmth or deformity Neuro: Denies: headache(s), numbness in extremities, weakness in extremities, sensory changes, difficulty walking, frequent falls, dizziness, vertigo, behavioral changes, Slurred speech present or seizure-like activity Psych: Denies: anxiety, depression, suicidal ideation or homicidal ideation Endo: Denies: polyuria, polydipsia, tired all the time, cold intolerance or hot flashes Meño/Lymph: Denies: easy bruising or easy bleeding Medications/Allergies Home Medications ?Medication ?Instructions ?Recorded ?Confirmed ?Last Taken ?Type oxcarbazepine 600 mg tablet 900 mg PO BID 02/26/22 08/05/25 07/25/22 History insulin pump cartridge,automated #1 ea 05/23/22 08/05/25 Unknown Rx dose,BT with controller subcutaneous (Omnipod 5 G6 Intro Kit (Gen 5) subcutaneous cartridge with controller) blood-glucose,assembler tester,cont #1 ea 10/10/23 08/05/25 Unknown Rx (Dexcom G6 Cutter Down) blood-glucose transmitter (Dexcom #1 ea 11/30/24 08/05/25 Unknown Rx G6 Transmitter device) blood-glucose sensor (Dexcom G6 #9 ea 12/27/24 08/05/25 Unknown Rx Sensor device) insulin pump cart,auto,BT,G6/7 #10 ea 01/03/25 08/05/25 Unknown Rx (Omnipod 5 G6-G7 Pods (Gen 5) subcutaneous cartridge) insulin aspart U-100 100 unit/mL See Rx Instructions .Route 02/11/25 08/05/25 Unknown Rx subcutaneous solution .COMPLEX #40 mL atorvastatin 40 mg tablet 40 mg PO DAILY 08/05/25 08/05/25 Unknown History insulin glargine 100 unit/mL (3 16 unit SUBCUT QPM 08/05/25 08/05/25 Unknown History mL) subcutaneous pen (Lantus Solostar U-100 Insulin) Allergies Allergy/AdvReac Type Severity Reaction Status Date / Time amoxicillin Allergy Doesn't Verified 01/13/25 07:32 work so he doesn't use it PFSH Acute PFSH: Medical History Seizures Hernia Diabetes type 1, uncontrolled Surgical History H/O eye surgery H/O brain surgery Family History Father No problems noted. Mother COPD (chronic obstructive pulmonary disease) Social History Smoking and tobacco/nicotine status: never used tobacco/nicotine Second hand smoke exposure: No Alcohol intake: never Substance/Drug Use: current Substance/Drug use frequency: daily Adopted: No Caregiver/support person: No Lives independently: Yes Household members: significant other and other Housing: Manufactured/Mobile home Marital status: Single Number of children: 0 Highest education level completed: GED or Equivalent service: No Current occupational status: disabled Vitals/I&O/Wt Last Vital Signs Temp 97.9 F 08/05/25 12:21 Pulse 84 08/05/25 16:05 Resp 19 H 08/05/25 12:21 BP 92/47 08/05/25 16:05 Pulse Ox 97 08/05/25 16:05 O2 Del Method Room Air 08/05/25 16:05 08/05/25 08/05/25 08/05/25 06:59 14:59 22:59 Intake Total 1000 / 1000 Balance 1000 / 1000 Weight last 48 hrs Weight 64.41 kg Physical Exam Narrative: General: Dehydrated, ill-appearing HEENT: PERRLA, pupils bilaterally equal and reactive, pallors not present Chest: Normal vesicular breath sounds, no added sounds, equal good air entry bilaterally CVS: S1-S2 regular, no murmurs, no tachycardia, no gallops, no rubs Abdomen: Soft, nontender, no organomegaly, bowel sounds present Neuro: No focal neurological deficits Data 08/05/25 13:21 08/05/25 13:21 Other data: Radiology Impressions Abdomen/Pelvis CT 08/05/25 14:45 IMPRESSION: 1. Mild circumferential urinary bladder wall thickening, possibly secondary to underdistention. Correlate with urinalysis to exclude cystitis. 2. Additional findings, as above. Laboratory Results WBC 12.81 10^3/uL (3.29-11.43) H 08/05/25 13:21 RBC 4.11 10^6/uL (3.85-5.65) 08/05/25 13:21 Hgb 13.00 g/dL (11.27-16.99) 08/05/25 13:21 Hct 37.6 % (37-53) 08/05/25 13:21 MCV 91.5 fl (82-101) 08/05/25 13:21 MCH 31.6 pg (27-33) 08/05/25 13:21 MCHC 34.6 g/dL (30-55) 08/05/25 13:21 RDW 12.0 % (12.1-15.1) L 08/05/25 13:21 Plt Count 209 10^3/cmm (157-399) 08/05/25 13:21 MPV 10.9 fL (7.4-10.4) H 08/05/25 13:21 Neut % (Auto) 93.0 % 08/05/25 13:21 Lymph % (Auto) 3.4 % 08/05/25 13:21 [place] % (Auto) 2.6 % 08/05/25 13:21 Eos % (Auto) 0.1 % 08/05/25 13:21 Baso % (Auto) 0.3 % 08/05/25 13:21 Neut # (Auto) 11.91 10^3/uL (1.8-7.7) H 08/05/25 13:21 Lymph # (Auto) 0.4 10^3/uL (0.8-4.8) L 08/05/25 13:21 [place] # (Auto) 0.3 10^3/uL (0.2-0.9) 08/05/25 13:21 Eos # (Auto) 0.0 10^3/uL (0.0-0.8) 08/05/25 13:21 Baso # (Auto) 0.0 10^3/uL (0.0-0.1) 08/05/25 13:21 Nucleated RBC % (auto) 0 % 08/05/25 13: Nucleated RBCs # 0.0 /100WBC 08/05/25 13:21 Specimen Type Arterial 08/05/25 12:28 Sample Site Radial, right 08/05/25 12:28 ABG pH 7.32 (7.35-7.45) L 08/05/25 12:28 ABG pCO2 34.9 mmHg (35-45) L 08/05/25 12:28 ABG pO2 84.1 mmHg (80.0-100.0) 08/05/25 12:28 ABG PO2/FiO2 Ratio 400 08/05/25 12:28 ABG HCO3 17.9 mmol/L (22-26) L 08/05/25 12:28 ABG O2 Saturation 96.4 08/05/25 12:28 ABG Base Excess -7.4 mmol/L (-2.0-2.0) L 08/05/25 12:28 John Test Pos 08/05/25 12:28 A-a O2 Gradient 2.6 mmHg (5-10) L 08/05/25 12:28 Hematocrit 43.9 % (42-52) 08/05/25 12:28 Hgb O2 Saturation 94.8 % (95-100) L 08/05/25 12:28 Carboxyhemoglobin 1.5 %THgb (0.4-20.1) 08/05/25 12:28 Methemoglobin 0.2 % (0.4-1.5) L 08/05/25 12:28 Total Hemoglobin 14.3 g/dL (14-18) 08/05/25 12:28 Sodium 130.0 mmol/L (131-143) L 08/05/25 12:28 Potassium 4.6 mmol/L (3.5-5.0) 08/05/25 12:28 Glucose 554.0 mg/dL (70-115) H 08/05/25 12:28 Ionized Calcium 1.1 mmol/L (1.1-1.4) 08/05/25 12:28 O2 Delivery Device Room air 08/05/25 12:28 FiO2 21.0 % 08/05/25 12:28 Online Program Coordinator ID Giselro 08/05/25 12:28 Sodium 133 mmol/L (136-145) L 08/05/25 13:21 Potassium 4.0 mmol/L (3.5-5.1) 08/05/25 13:21 Chloride 96 mmol/L (98-107) L 08/05/25 13:21 Carbon Dioxide 17 mmol/L (22-29) L 08/05/25 13:21 Anion Gap 24.0 (5-19) H 08/05/25 13:21 BUN 32 mg/dL (6-20) H 08/05/25 13:21 Creatinine 2.8 mg/dL (0.7-1.2) H 08/05/25 13:21 GFR Calculation 26.6 mL/min (90-130) L 08/05/25 13:21 Glucose 476 mg/dL (65-115) H 08/05/25 13:21 POC Glucose 386 mg/dL (70-110) H 08/05/25 14:51 Calculated Osmolality 304 mOsm/kg (285-295) H 08/05/25 13:21 Calcium 8.1 mg/dL (8.5-10.5) L 08/05/25 13:21 Phosphorus 3.3 mg/dL (2.5-4.5) 08/05/25 13:21 Magnesium 1.8 mg/dL (1.7-2.3) 08/05/25 13:21 Total Bilirubin 0.5 mg/dL (0.15-1.2) 08/05/25 13:21 AST 16 U/L (0-40) 08/05/25 13:21 ALT 16 U/L (0-41) 08/05/25 13:21 Alkaline Phosphatase 123 U/L (40-130) 08/05/25 13:21 Total Protein 6.3 g/dL (6.6-8.7) L 08/05/25 13:21 Albumin 3.9 g/dL (3.5-5.2) 08/05/25 13:21 Globulin 2.4 g/dL (1.3-4.6) 08/05/25 13:21 Urine Color Dark yellow (Yellow) A 08/05/25 14:04 Urine Appearance Cloudy (CLEAR) A 08/05/25 14:04 Urine pH 5.0 (5-7) 08/05/25 14:04 Ur Specific [place] 1.022 (1.005-1.030) 08/05/25 14:04 Urine Protein 2+ (Negative) A 08/05/25 14:04 Urine Glucose (UA) 3+ (Normal) H 08/05/25 14:04 Urine Ketones 1+ (Negative) H 08/05/25 14:04 Urine Blood Negative (Negative) 08/05/25 14:04 Urine Nitrate Negative (Negative) 08/05/25 14:04 Urine Bilirubin Negative (Negative) 08/05/25 14:04 Urine Urobilinogen 1.0 mg/dL (Negative) 08/05/25 14:04 Ur Leukocyte Esterase Negative (Negative) 08/05/25 14:04 Urine RBC 0-2 /hpf (0-2) 08/05/25 14:04 Urine WBC 0-5 /hpf (0-5) 08/05/25 14:04 Ur Squamous Epith Cells 0-5 /hpf (0-5) 08/05/25 14:04 Amorphous Sediment Not Reportable 08/05/25 14:04 Urine Bacteria None seen /hpf (NONE) 08/05/25 14:04 Hyaline Casts 47.99 /lpf 08/05/25 14:04 Urine Sperm 1+ /hpf 08/05/25 14:04 Serum Ketones Negative (Negative) 08/05/25 13:21 A&P Assessment and plan 1. DKA (diabetic ketoacidosis): Diabetic ketoacidosis as evidenced by blood sugar over 400, ketonuria, positive anion gap at 24 Start patient on insulin drip as per DKA/HHS protocol with target blood sugars between 100-130 normal saline at 125 cc/h. We will switch to D5 NS once blood sugar less than 250. Monitor BMP every 4 hours. Once potassium less than 4 we will add 20 mg of potassium to IV fluids. Monitor saturations. Maintain over 90%. Transition to sliding scale and long-acting insulin once anion gap resolves. 2. Leukocytosis: Likely related to dehydration Urine analysis negative for acute infection Obtain chest x-ray Abdomen/pelvis CT With circumferential bladder wall thickening likely related to underdistention. Since UA is unremarkable unlikely cystitis. Nonobstructing bilateral renal calculi without hydronephrosis. Moderate amount of retained stool noted in the colon. 3. AUGUSTA (acute kidney injury): AUGUSTA on CKD. Creatinine at 2.8 today. His last known baseline from August 2023 was at 1.9. Previous numbers are ranging between 1.4-1.9. However no new data since 2022.Family reports a history of CKD 3 IV hydration as above. Closely monitor urine output 4. Seizure disorder: Continue oxcarbazepine at home. Plan: DVT prophylaxis SCDs, low risk overall Full code: PDMP PDMP Reviewed: Not Reviewed Attestations Medical Necessity Statement*: DKA needing insulin drip AUGUSTA needing IV fluid Coding Level of Care Code Acute Code for Chg Fwd High MDM includes number and complexity of problems actively addressed during encounter, amount and/or complexity of data reviewed/ordered and described risk of complication, morbidity or mortality of management as documented Diagnoses DKA (diabetic ketoacidosis) E11.10 Leukocytosis D72.829 AUGUSTA (acute kidney injury) N17.9 Seizure disorder G40.909
--- NOTE | 2025-08-05 17:35 | PC.NURSE ---
Pt arrvies to ICu. Pt oriented and arouses easily. Very drowsy. Two peripoheral IVs noted, bilat AC. Insulin and D5 with KCL infusing without difficultly. Pt denies pain
[2025-08-05 17:44] LABS: Troponin(5th) Baseline 35 ng/L (0-15)
[2025-08-05 18:01] LABS: Coronavirus 229E,HKU1,NL63,OC4 Not Detected (NOT DETECT); Parainfluenza Virus Type 1 Not Detected (NOT DETECT); Parainfluenza Virus Type 2 Not Detected (NOT DETECT); Parainfluenza Virus Type 3 Not Detected (NOT DETECT); Parainfluenza Virus Type 4 Not Detected (NOT DETECT); SARS-COV-2 Not Detected (NOT DETECT)
[2025-08-05 18:36] LABS: Alanine Aminotransferase 14 U/L (0-41); Albumin Level 3.5 g/dL (3.5-5.2); Alkaline Phosphatase 108 U/L (40-130); Anion Gap 20.6 (5-19); Aspartate Amino Transferase 14 U/L (0-40); Blood Urea Nitrogen 36 mg/dL (6-20); Calcium 8.1 mg/dL (8.5-10.5); Carbon Dioxide 19 mmol/L (22-29); Chloride 98 mmol/L (98-107); Creatinine Clr Calc Pharmacy 30.3597; Globulin 2.2 g/dL (1.3-4.6); Glucose 320 mg/dL (65-115); Osmolality Calculated 299 mOsm/kg (285-295); Potassium 3.6 mmol/L (3.5-5.1); Sodium 134 mmol/L (136-145); Total Protein 5.7 g/dL (6.6-8.7)
--- NOTE | 2025-08-05 18:49 | ECG_ITS ---
[facility] Test Date: 2025-08-05 Pat Name: Cayetano Dill Department: Room: [facility] Gender: Male Principal Embedded Software Engineer: : 1995 Requested By: Di Acosta Order Number: [id number] Richar MD: Eamon Dawson M.D. Measurements Intervals [place] Rate: 78 P: 73 IN: 176 QRS: 85 QRSD: 91 T: 40 QT: 400 QTc: 456 Interpretive Statements SINUS RHYTHM POSSIBLE LEFT ATRIAL ENLARGEMENT [-0.1mV P-WAVE IN V1/V2] NONSPECIFIC T-WAVE ABNORMALITY Compared to ECG 07/25/2022 11:25:06 T-wave abnormality now present Electronically Signed On 08-06-2025 13:05:07 ELECTRO OPTICAL ENGINEER by Eamon Dawson M.D. [email or web address]
[2025-08-05 19:36] LABS: Troponin 5 2HR 34.70 ng/L (0-15)
[2025-08-05 19:37] LABS: Troponin 5 2HR Delta -0.30 ABS# (0-10)
--- NOTE | 2025-08-05 20:48 | PC.NURSE ---
Contacted Dr. Aguilar in regards to patients blood sugar readings, received verbal orders at this time to run insulin drip at 0.5 ml/ hour and to run D5 with ns at 150/ hour. MAR reflected to show orders
[2025-08-05 22:17] LABS: Alanine Aminotransferase 13 U/L (0-41); Albumin Level 3.4 g/dL (3.5-5.2); Alkaline Phosphatase 104 U/L (40-130); Anion Gap 16.9 (5-19); Aspartate Amino Transferase 13 U/L (0-40); Blood Urea Nitrogen 35 mg/dL (6-20); Calcium 8.1 mg/dL (8.5-10.5); Carbon Dioxide 22 mmol/L (22-29); Chloride 104 mmol/L (98-107); Creatinine Clr Calc Pharmacy 38.3631; Globulin 2.0 g/dL (1.3-4.6); Glucose 133 mg/dL (65-115); Osmolality Calculated 298 mOsm/kg (285-295); Potassium 3.9 mmol/L (3.5-5.1); Sodium 139 mmol/L (136-145); Total Protein 5.4 g/dL (6.6-8.7)
[2025-08-05] MEDS: potassium chloride oral liq 20 mEq/15 mL UDC 40 MEQ PO (22:30)
--- NOTE | 2025-08-05 22:49 | ECG_ITS ---
[facility] Test Date: 2025-08-05 Pat Name: Cayetano Dill Department: Room: [facility] Gender: Male Concrete Precast [place]: : 1995 Requested By: Di Acosta Order Number: [id number] Richar MD: Eamon Dawson M.D. Measurements Intervals [place] Rate: 75 P: 71 OK: 186 QRS: 84 QRSD: 95 T: 35 QT: 387 QTc: 434 Interpretive Statements SINUS RHYTHM Compared to ECG 08/05/2025 18:14:21 T-wave abnormality no longer present Electronically Signed On 08-06-2025 13:04:28 GROCERY BAGGER by Eamon Dawson M.D. [email or web address]
[2025-08-05] MEDS: dextrose 5%-ns + KCl 20 20 MEQ/1,000 ML BAG 150 MEQ IV (23:15)
[2025-08-05 23:38] LABS: Troponin 5 6HR 26.49 ng/L (0-15)
[2025-08-05 23:41] LABS: Troponin 5 6HR Delta -8.51 ng/L (0-12)
[2025-08-06] VITALS (39 sets, daily range): BP systolic 91–141; BP diastolic 42–92; PULSE 61–85; RESP 3–27; TEMP 36.7–37; O2SAT 97–100
[2025-08-06 02:06] LABS: Alanine Aminotransferase 14 U/L (0-41); Albumin Level 3.4 g/dL (3.5-5.2); Alkaline Phosphatase 101 U/L (40-130); Anion Gap 14.8 (5-19); Aspartate Amino Transferase 12 U/L (0-40); Blood Urea Nitrogen 34 mg/dL (6-20); Calcium 8.2 mg/dL (8.5-10.5); Carbon Dioxide 20 mmol/L (22-29); Chloride 108 mmol/L (98-107); Creatinine Clr Calc Pharmacy 45.0349; Globulin 2.1 g/dL (1.3-4.6); Glucose 215 mg/dL (65-115); Osmolality Calculated 300 mOsm/kg (285-295); Potassium 4.8 mmol/L (3.5-5.1); Sodium 138 mmol/L (136-145); Total Protein 5.5 g/dL (6.6-8.7)
[2025-08-06] MEDS: insulin glargine 100 units/1 mL 16 UNIT SUBCUT (02:51)
[2025-08-06 06:23] LABS: Alanine Aminotransferase 13 U/L (0-41); Albumin Level 3.3 g/dL (3.5-5.2); Alkaline Phosphatase 100 U/L (40-130); Anion Gap 12.6 (5-19); Aspartate Amino Transferase 11 U/L (0-40); Blood Urea Nitrogen 30 mg/dL (6-20); Calcium 8.1 mg/dL (8.5-10.5); Carbon Dioxide 21 mmol/L (22-29); Chloride 107 mmol/L (98-107); Creatinine Clr Calc Pharmacy 43.9482; Globulin 2.0 g/dL (1.3-4.6); Glucose 300 mg/dL (65-115); Osmolality Calculated 299 mOsm/kg (285-295); Potassium 4.6 mmol/L (3.5-5.1); Sodium 136 mmol/L (136-145); Total Protein 5.3 g/dL (6.6-8.7)
--- NOTE | 2025-08-06 09:27 | PC.NURSE ---
AMA: Patient has left AMA. He states that now that he is off of his insulin drip and his anion gap is 12.6, he doesn't feel further hospitalization is necessary. NUrse alerted Dr Acosta, but patient does not wish to wait for physician arrival to discuss his care. Nurse informed the patient of risks of again developing hyperglycemia and acidosis, and that we would like to monitor blood work for a longer time to ensure his condition doesn't regress. Patient still refuses to stay. Nurse informed patient of symptoms of DKA/HHS and encouraged him to not hesitate to come back if necessary. Bilateral IVs removed. AMA form signed. Patient left acompanied by his girlfriend.
--- NOTE | 2025-08-06 15:08 | P.DS_ITS ---
Discharge Providers Date of Admission: 08/05/25 16:58 Date of Discharge: August 06, 2025 Attending Provider at Admission: Di Acosta MD Attending Provider at Discharge: Di Acosta MD Primary Care Provider: Andrzej Todd DO Diagnoses at Discharge Discharge Diagnosis 1. DKA (diabetic ketoacidosis): 2. Leukocytosis: 3. AUGUSTA (acute kidney injury): 4. Seizure disorder: Reason for Visit Reason for Visit: ELEVATED BS Hospital Course Hospital Course 30-year-old male admitted for DKA, AUGUSTA on CKD and leukocytosis yesterday. Received treatment for DKA with insulin drip. Anion gap closed overnight and he was transitioned to Lantus and sliding scale insulin. Patient was recommended to stay to monitor blood sugar levels today, monitor leukocytosis and kidney function, however he elected to leave AMA. Discharge Data Studies Completed and Pending Completed Studies During Hospitalization Category Date Time Status CT abdomen renal stone [CT kidney stone 76752] Stat Cat Scan 08/05/25 14:45 Completed CXRP [XR chest 1V portable 26269] Stat Exams 08/05/25 15:55 Completed Pending at discharge Category Date Time Status Beta-Hydroxybutyrate Routine Lab 08/05/25 13:21 Received Blood Culture Stat Lab 08/05/25 17:09 Received Trileptal [Oxcarbazepine Metabolite] Routine Lab 08/05/25 13:21 Received Radiology Impressions Abdomen/Pelvis CT 08/05/25 14:45 IMPRESSION: 1. Mild circumferential urinary bladder wall thickening, possibly secondary to underdistention. Correlate with urinalysis to exclude cystitis. 2. Additional findings, as above. Chest X-Ray 08/05/25 15:55 IMPRESSION: No acute radiographic findings. Laboratory Results WBC 12.81 10^3/uL (3.29-11.43) H 08/05/25 13:21 RBC 4.11 10^6/uL (3.85-5.65) 08/05/25 13:21 Hgb 13.00 g/dL (11.27-16.99) 08/05/25 13:21 Hct 37.6 % (37-53) 08/05/25 13:21 MCV 91.5 fl (82-101) 08/05/25 13:21 MCH 31.6 pg (27-33) 08/05/25 13:21 MCHC 34.6 g/dL (30-55) 08/05/25 13:21 RDW 12.0 % (12.1-15.1) L 08/05/25 13:21 Plt Count 209 10^3/cmm (157-399) 08/05/25 13:21 MPV 10.9 fL (7.4-10.4) H 08/05/25 13:21 Neut % (Auto) 93.0 % 08/05/25 13:21 Lymph % (Auto) 3.4 % 08/05/25 13:21 [place] % (Auto) 2.6 % 08/05/25 13:21 Eos % (Auto) 0.1 % 08/05/25 13:21 Baso % (Auto) 0.3 % 08/05/25 13:21 Neut # (Auto) 11.91 10^3/uL (1.8-7.7) H 08/05/25 13:21 Lymph # (Auto) 0.4 10^3/uL (0.8-4.8) L 08/05/25 13:21 [place] # (Auto) 0.3 10^3/uL (0.2-0.9) 08/05/25 13:21 Eos # (Auto) 0.0 10^3/uL (0.0-0.8) 08/05/25 13:21 Baso # (Auto) 0.0 10^3/uL (0.0-0.1) 08/05/25 13:21 Nucleated RBC % (auto) 0 % 08/05/25 13: Nucleated RBCs # 0.0 /100WBC 08/05/25 13:21 Specimen Type Arterial 08/05/25 12:28 Sample Site Radial, right 08/05/25 12:28 ABG pH 7.32 (7.35-7.45) L 08/05/25 12:28 ABG pCO2 34.9 mmHg (35-45) L 08/05/25 12:28 ABG pO2 84.1 mmHg (80.0-100.0) 08/05/25 12:28 ABG PO2/FiO2 Ratio 400 08/05/25 12:28 ABG HCO3 17.9 mmol/L (22-26) L 08/05/25 12:28 ABG O2 Saturation 96.4 08/05/25 12:28 ABG Base Excess -7.4 mmol/L (-2.0-2.0) L 08/05/25 12:28 John Test Pos 08/05/25 12:28 A-a O2 Gradient 2.6 mmHg (5-10) L 08/05/25 12:28 Hematocrit 43.9 % (42-52) 08/05/25 12:28 Hgb O2 Saturation 94.8 % (95-100) L 08/05/25 12:28 Carboxyhemoglobin 1.5 %THgb (0.4-20.1) 08/05/25 12:28 Methemoglobin 0.2 % (0.4-1.5) L 08/05/25 12:28 Total Hemoglobin 14.3 g/dL (14-18) 08/05/25 12:28 Sodium 130.0 mmol/L (131-143) L 08/05/25 12:28 Potassium 4.6 mmol/L (3.5-5.0) 08/05/25 12:28 Glucose 554.0 mg/dL (70-115) H 08/05/25 12:28 Ionized Calcium 1.1 mmol/L (1.1-1.4) 08/05/25 12:28 O2 Delivery Device Room air 08/05/25 12:28 FiO2 21.0 % 08/05/25 12:28 Family And Marriage Counsellor ID Ahmet 08/05/25 12:28 Sodium 136 mmol/L (136-145) 08/06/25 05:52 Potassium 4.6 mmol/L (3.5-5.1) 08/06/25 05:52 Chloride 107 mmol/L (98-107) 08/06/25 05:52 Carbon Dioxide 21 mmol/L (22-29) L 08/06/25 05:52 Anion Gap 12.6 (5-19) 08/06/25 05:52 BUN 30 mg/dL (6-20) H 08/06/25 05:52 Creatinine 2.0 mg/dL (0.7-1.2) H 08/06/25 05:52 GFR Calculation 39.2 mL/min (90-130) L 08/06/25 05:52 Glucose 300 mg/dL (65-115) H 08/06/25 05:52 POC Glucose 234 mg/dL (70-110) H 08/06/25 07:11 Calculated Osmolality 299 mOsm/kg (285-295) H 08/06/25 05:52 Calcium 8.1 mg/dL (8.5-10.5) L 08/06/25 05:52 Phosphorus 3.3 mg/dL (2.5-4.5) 08/05/25 13:21 Magnesium 1.8 mg/dL (1.7-2.3) 08/05/25 13:21 Total Bilirubin 0.2 mg/dL (0.15-1.2) 08/06/25 05:52 AST 11 U/L (0-40) 08/06/25 05:52 ALT 13 U/L (0-41) 08/06/25 05:52 Alkaline Phosphatase 100 U/L (40-130) 08/06/25 05:52 Troponin T Baseline 35 ng/L (0-15) H 08/05/25 17:09 Troponin T 120 Minute 34.70 ng/L (0-15) H 08/05/25 19:14 Delta Troponin T -0.30 ABS# (0-10) L 08/05/25 19:14 Troponin T Hi Sens 6Hr 26.49 ng/L (0-15) H 08/05/25 23:13 Troponin T Hi Sens 6Hr Delta -8.51 ng/L (0-12) L 08/05/25 23:13 Total Protein 5.3 g/dL (6.6-8.7) L 08/06/25 05:52 Albumin 3.3 g/dL (3.5-5.2) L 08/06/25 05:52 Globulin 2.0 g/dL (1.3-4.6) 08/06/25 05:52 Urine Color Dark yellow (Yellow) A 08/05/25 14:04 Urine Appearance Cloudy (CLEAR) A 08/05/25 14:04 Urine pH 5.0 (5-7) 08/05/25 14:04 Ur Specific [place] 1.022 (1.005-1.030) 08/05/25 14:04 Urine Protein 2+ (Negative) A 08/05/25 14:04 Urine Glucose (UA) 3+ (Normal) H 08/05/25 14:04 Urine Ketones 1+ (Negative) H 08/05/25 14:04 Urine Blood Negative (Negative) 08/05/25 14:04 Urine Nitrate Negative (Negative) 08/05/25 14:04 Urine Bilirubin Negative (Negative) 08/05/25 14:04 Urine Urobilinogen 1.0 mg/dL (Negative) 08/05/25 14:04 Ur Leukocyte Esterase Negative (Negative) 08/05/25 14:04 Urine RBC 0-2 /hpf (0-2) 08/05/25 14:04 Urine WBC 0-5 /hpf (0-5) 08/05/25 14:04 Ur Squamous Epith Cells 0-5 /hpf (0-5) 08/05/25 14:04 Amorphous Sediment Not Reportable 08/05/25 14:04 Urine Bacteria None seen /hpf (NONE) 08/05/25 14:04 Hyaline Casts 47.99 /lpf 08/05/25 14:04 Urine Sperm 1+ /hpf 08/05/25 14:04 Serum Ketones Negative (Negative) 08/05/25 13:21 Adenovirus (PCR) Not detected (NOT DETECT) 08/05/25 16:08 C. pneumoniae DNA (PCR) Not detected (NOT DETECT) 08/05/25 16:08 Coronavirus 229E (PCR) Not detected (NOT DETECT) 08/05/25 16:08 Human Metapneumovir PCR Not detected (NOT DETECT) 08/05/25 16:08 Influenza A (H1) PCR Not detected (NOT DETECT) 08/05/25 16:08 Influ A (H1/09) PCR Not detected (NOT DETECT) 08/05/25 16:08 Influenza A (H3) PCR Not detected (NOT DETECT) 08/05/25 16:08 Influenza Type A (PCR) Not detected (NOT DETECT) 08/05/25 16:08 Influenza Type B (PCR) Not detected (NOT DETECT) 08/05/25 16:08 M. pneumoniae (PCR) Not detected (NOT DETECT) 08/05/25 16:08 Parainfluenza 1 (PCR) Not detected (NOT DETECT) 08/05/25 16:08 Parainfluenza 2 (PCR) Not detected (NOT DETECT) 08/05/25 16:08 Parainfluenza 3 (PCR) Not detected (NOT DETECT) 08/05/25 16:08 Parainfluenza 4 (PCR) Not detected (NOT DETECT) 08/05/25 16:08 RSV Type A (PCR) Not detected (NOT DETECT) 08/05/25 16:08 RSV Type B (PCR) Not detected (NOT DETECT) 08/05/25 16:08 Entero/Rhino (PCR) Not detected (NOT DETECT) 08/05/25 16:08 SARS-CoV-2 (PCR) Not detected (NOT DETECT) 08/05/25 16:08 Vitals Last Vital Signs Temp 98.6 F 08/06/25 07:30 Pulse 73 08/06/25 09:59 Resp 18 08/06/25 09:59 BP 131/75 08/06/25 09:59 Pulse Ox 100 08/06/25 09:59 O2 Del Method Room Air 08/06/25 07:30 Discharge Plan Discharge Patient Disposition: Left Against Medical Advice Condition: Stable Prescriptions: No Action (DME) Omnipod 5 G6-G7 Pods (Gen 5) Cartridge See Rx Instructions .ROUTE .COMPLEX Qty: 10 0RF Dose Instruction: USE DIRECTED AND CHANGE EVERY 72 HOURS Rx Instructions: USE DIRECTED AND CHANGE EVERY 72 HOURS oxcarbazepine 600 mg tablet 900 mg PO BID (DME) Omnipod 5 G6 Intro Kit (Gen 5) Cartridge See Rx Instructions .ROUTE .COMPLEX Qty: 1 0RF Dose Instruction: USE DIRECTED Rx Instructions: USE DIRECTED (DME) Dexcom G6 Director Of Tax Services Misc See Rx Instructions .Route Qty: 1 0RF Rx Instructions: Check BS 4-6 times a day. (DME) Dexcom G6 Transmitter Device See Rx Instructions .ROUTE .COMPLEX Qty: 1 3RF Dose Instruction: CHANGE EVERY 90 DAYS DIRECTED Rx Instructions: CHANGE EVERY 90 DAYS DIRECTED (DME) Dexcom G6 Sensor Device See Rx Instructions .ROUTE .COMPLEX Qty: 9 0RF Dose Instruction: USE DIRECTED AND CHANGE EVERY 10 DAYS Rx Instructions: USE DIRECTED AND CHANGE EVERY 10 DAYS insulin aspart U-100 100 unit/mL solution See Rx Instructions .ROUTE .COMPLEX Qty: 40 0RF Dose Instruction: INJECT 30 UNITS VIA CONTINUOUS SUBCUTANEOUS INFUSION DAILY FOR 90 DAYS VIA PUMP Rx Instructions: Inject 5-15 units before meals and sliding scale of 1 unit per 30 carbs. atorvastatin 40 mg tablet 40 mg PO DAILY insulin glargine [Lantus Solostar U-100 Insulin] 100 unit/mL (3 mL) Insulin Pen 16 unit SUBCUT QPM Discharge Order = DC NOW: Discharge Order (Routine); Ordered 08/06/25 Ordered By: Di Acosta Referrals: Andrzej Todd DO [Primary Care Provider, [facility]] Discharge Attestations Time Spent in Discharge Care*: other Quality Metrics Clinical Quality Measures [ No reported AMI, CVA or VTE this stay] Coding Level of Care Code Acute Code for Chg Fwd Diagnoses DKA (diabetic ketoacidosis) E11.10 Leukocytosis D72.829 [place] (acute kidney injury) N17.9 Seizure disorder G40.909
== END 2025-08-06 10:01 | disposition left against medical advice (07) | DRG 638 ==
LOC: ER 15:23 → ICU 16:58
PROVIDERS: Admitting Provider Student in an Organized Health Care Education/Training Program; Emergency Provider Physician Assistant; PCP Family Medicine; Visit Provider Student in an Organized Health Care Education/Training Program
DX: E10.10 Type 1 diabetes mellitus with ketoacidosis without coma (principal); N17.9 Acute kidney failure, unspecified; G40.909 Epilepsy, unspecified, not intractable, without status epilepticus; E10.22 Type 1 diabetes mellitus with diabetic chronic kidney disease; Z53.29 Procedure and treatment not carried out because of patient's decision for other reasons; R00.0 Tachycardia, unspecified; Z79.4 Long term (current) use of insulin
CPT/HCPCS: 36415; 36416; 36600; 71045; 74176; 80051; 80053; 80183; 81001; 82009; 82010; 82330; 82805; 82962; 83735; 84100; 84484; 85025; 87040; 87486; 87581; 87633; 93005; 96365; 96366; 96367; 96372; 96375; 96376; 99285; J1630; J1815; J2060; J2765; J7030; J9999